=== PATIENT | male | born 1950 | race Caucasian/White ===

== ENCOUNTER 2017-04-23 18:57 | Emergency (ER) | payer MEDICARE, OTHER ==
[~2017-04-23] VITALS: Ht 167.6 cm; Wt 73.0 kg
[~2017-04-23 18:57] MED LIST: ASPI-247; CARV3.1240; HYDR-2601; IBUP800T24; PLAVIX; SIMV-13; TRAM100T19
[2017-04-23 19:05] VITALS: BP 148/77
[2017-04-23 19:48] LABS: Basophils # (auto) 0 uL; Basophils % (auto) 0.6 % (0.0-2.0); Eosinophils # (auto) 0.4 uL; Hematocrit 41.1 % (41.0-53.0); Hemoglobin 13.6 g/dL (13.5-17.5); Lymphocytes # (auto) 1.9 uL; Lymphocytes % (auto) 24.2 % (10.0-50.0); Mean Corpuscular Hgb Conc. 33.2 g/dL (32.0-36.0); Mean Corpuscular Volume 90.5 fL (80.0-100.0); Monocytes # (auto) 0.5 uL; Neutrophils % (auto) 64.2 % (37.0-80.0); Nucleated Red Blood Cells % 0.1 %; Platelet Count (auto) 325 10^3/uL (140-450); Red Blood Cells 4.54 10^6/uL (4.5-5.90); Red Cell Distribution Width 14.3 % (11.8-14.3); White Blood Cell 7.8 10^3/uL (4.4-10.8)
[2017-04-23 20:14] LABS: Albumin 4.4 g/dL (3.4-5.0); BUN/Creatinine Ratio 15.3; Bilirubin, Total 0.3 mg/dL (0.2-1.0); Potassium 4.1 mmol/L (3.5-5.1); Total Protein 7.7 g/dL (6.4-8.2)
[2017-04-23 20:26] LABS: INR 1.1 (0.9-1.15); Partial Thromboplastin Time 22.9 sec (22.64-33.71)
[2017-04-23 20:29] LABS: Magnesium 2.1 mg/dL (1.6-2.6)
== END 2017-04-23 21:05 | disposition left against medical advice (07) ==
LOC: EDBD 18:57 → ER 18:57
DX: R10.13 Epigastric pain (principal); R07.89 Other chest pain; Z53.21 Procedure and treatment not carried out due to patient leaving prior to being seen by health care provider
CPT/HCPCS: 36415; 80053; 82150; 83735; 83880; 84443; 84484; 85025; 85610; 85730; 93005

== ENCOUNTER 2022-10-18 06:21 | Inpatient (IN) | payer MEDICARE, OTHER ==
[2022-10-14 10:40] LABS: Basophils # (auto) 0.1 10 ^3/uL (0-0.2); Basophils % (auto) 0.8 % (0.0-2.0); Eosinophils # (auto) 0.2 10 ^3/uL (0-0.8); Eosinophils % (auto) 3.2 % (0.0-7.0); Hematocrit 38.6 % (41.0-53.0); Hemoglobin 12.8 g/dL (13.5-17.5); Lymphocytes # (auto) 1.5 10 ^3/uL (0.4-5.4); Lymphocytes % (auto) 20.2 % (10.0-50.0); Mean Corpuscular Hemoglobin 29.7 pg (28.0-32.0); Mean Corpuscular Hgb Conc. 33.2 g/dL (32.0-36.0); Mean Corpuscular Volume 89.6 fL (80.0-100.0); Monocytes # (auto) 0.5 10 ^3/uL (0-1.3); Neutrophils # (auto) 5.3 10 ^3/uL (1.6-8.6); Neutrophils % (auto) 69.8 % (37.0-80.0); Nucleated Red Blood Cells % 0.1 %; Red Blood Cells 4.31 10^6/uL (4.5-5.90); Red Cell Distribution Width 14.1 % (11.8-14.3); White Blood Cell 7.6 10^3/uL (4.4-10.8)
[2022-10-14 10:58] LABS: Potassium 4.3 mmol/L (3.5-5.1)
[2022-10-14 11:04] LABS: Albumin 4.4 g/dL (3.4-5.0); BUN/Creatinine Ratio 17.5 (10.0-20.0); Bilirubin, Total 0.3 mg/dL (0.2-1.0); Calcium 9.3 mg/dL (8.5-10.1); Total Protein 7.4 g/dL (6.4-8.2); Urine Bacteria NONE SEEN /hpf (None Seen); Urine Blood Negative /uL (Negative); Urine Clarity Clear (Clear); Urine Color Yellow (Yellow); Urine Hyaline Cast FEW /lpf (0 - 2); Urine Mucus FEW (None Seen); Urine Protein, UAD Negative (Negative); Urine Specific Gravity 1.032 (1.001-1.035); Urine Urobilinogen Normal (Negative); Urine WBC 2 /hpf (0 - 3); Urine pH 5.5 (5.0-8.0)
[2022-10-14 11:27] LABS: INR 1.09 (0.9-1.15); Partial Thromboplastin Time 26.2 SEC (24.5-34.5); Prothrombin Time 11.4 sec (9.3-11.8)
[~2022-10-18] VITALS: Ht 167.6 cm; Wt 68.5 kg
[2022-10-18] VITALS (10 sets, daily range): BP systolic 86–144; BP diastolic 51–73; PULSE 59–98; RESP 11–27; TEMP 97–97.8; O2SAT 96–100
[~2022-10-18 06:21] MED LIST changes: +ALBUAER3 IN; +ATOR20TA50 PO; +BECLPOW12 XX; -CARV3.1240; +CITA20TA9 PO; +FAMO-68 PO; +FENO5TAB PO; -HYDR-2601; +IBUP-1456; -IBUP800T24; +LISI20TA56 PO; +METF-370 PO; -SIMV-13; -TRAM100T19
[2022-10-18] MEDS ORDERED: HYDROmorphone HCL 2 MG/ML VL/or syr ONE (07:20)
[2022-10-18] MEDS ORDERED: DexAMETHasone SOD PHOS 10MG/1ML VIAL INJ ONE (07:21)
[2022-10-18] MEDS ORDERED: fentaNYL CITRATE 100 MCG/2 ML VL ONE (07:21)
[2022-10-18] MEDS ORDERED: MIDAZOLAM HCL 2MG/2ML 2ml VIAL (1mg/ml) ONE (07:21)
[2022-10-18] MEDS ORDERED: PROPOFOL 10 MG/ML 20 ML IV ONE (07:21)
[2022-10-18] MEDS ORDERED: ceFAZolin 1GM/50ML 100 ML IV ONE (07:26)
[2022-10-18] MEDS ORDERED: PHENYLEPHRINE HCL 10 MG/ML VL IV ONE (07:30)
[2022-10-18] MEDS ORDERED: ePHEDrine SULFATE 50 MG/ML AMP IV PRN (08:45)
[2022-10-18] MEDS ORDERED: MORPHINE SULFATE 4 MG/ML SYR/VIAL IV PRN (08:45)
[2022-10-18] MEDS ORDERED: MIDAZOLAM HCL 2MG/2ML 2ml VIAL (1mg/ml) IV PRN (08:45)
[2022-10-18] MEDS ORDERED: LABETALOL HCL 5 MG/ML 4ML SYRINGE IV PRN (08:45)
[2022-10-18] MEDS ORDERED: ONDANSETRON HCL 4 MG/2 ML VIAL IV PRN (08:45)
[2022-10-18] MEDS ORDERED: HYDROmorphone HCL 2 MG/ML VL/or syr IV PRN (08:45)
[2022-10-18 12:46] LABS: Base Excess -6.7 mmol/L (-2.0-2.0)
[2022-10-18] MEDS ORDERED: ACETAMINOPHEN 325 MG TAB PO PRN (13:00)
[2022-10-18] MEDS ORDERED: NITROGLYCERIN 0.4 MG SL TAB SL PRN (13:00)
[2022-10-18] MEDS ORDERED: ALBUTEROL SULF HFA 90MCG INH 200DOSE IN SCH (13:15)
[2022-10-18] MEDS ORDERED: ALBUTEROL SULF 2.5 MG/0.5ML(0.5%) NEB SOLN NEB PRN (13:45)
[2022-10-18] MEDS: CYCLOBENZAPRINE HCL 10 MG TAB PO SCH ×2 (14:00→22:00)
[2022-10-18 15:25] LABS: Basophils # (auto) 0 10 ^3/uL (0-0.2); Basophils % (auto) 0.2 % (0.0-2.0); Eosinophils # (auto) 0 10 ^3/uL (0-0.8); Eosinophils % (auto) 0.2 % (0.0-7.0); Mean Corpuscular Volume 90.9 fL (80.0-100.0); Red Cell Distribution Width 13.9 % (11.8-14.3)
[2022-10-18 15:27] LABS: Hematocrit 22.3 % (41.0-53.0); Hemoglobin 7.2 g/dL (13.5-17.5); Lymphocytes % (auto) 5.6 % (10.0-50.0); Mean Corpuscular Hemoglobin 29.5 pg (28.0-32.0); Mean Corpuscular Hgb Conc. 32.5 g/dL (32.0-36.0); Monocytes # (auto) 0.5 10 ^3/uL (0-1.3); Monocytes % (auto) 3.1 % (0.0-12.0); Neutrophils # (auto) 15.9 10 ^3/uL (1.6-8.6); Neutrophils % (auto) 90.9 % (37.0-80.0); Red Blood Cells 2.45 10^6/uL (4.5-5.90); White Blood Cell 17.4 10^3/uL (4.4-10.8)
[2022-10-18 15:39] LABS: Base Excess -6.6 mmol/L (-2.0-2.0)
[2022-10-18 15:43] LABS: Albumin 2.5 g/dL (3.4-5.0); Calcium 7.4 mg/dL (8.5-10.1); Potassium 4.8 mmol/L (3.5-5.1)
[2022-10-18] MEDS: ceFAZolin 1GM/50ML 50 ML IV SCH ×2 (15:44→22:46)
[2022-10-18 15:46] LABS: BUN/Creatinine Ratio 21.4 (10.0-20.0); Bilirubin, Total 0.2 mg/dL (0.2-1.0); Total Protein 4.3 g/dL (6.4-8.2)
[2022-10-18] MEDS ORDERED: ALBUMIN 25% 100 ML IV ONE (16:00)
[2022-10-18] MEDS: D5W/SOD CHLO 0.9% 1,000 ML IV SCH (16:33)
[2022-10-18 18:53] LABS: Basophils # (auto) 0 10 ^3/uL (0-0.2); Basophils % (auto) 0.1 % (0.0-2.0); Eosinophils # (auto) 0 10 ^3/uL (0-0.8); Eosinophils % (auto) 0.1 % (0.0-7.0); Hematocrit 23.7 % (41.0-53.0); Hemoglobin 7.5 g/dL (13.5-17.5); Lymphocytes # (auto) 0.5 10 ^3/uL (0.4-5.4); Lymphocytes % (auto) 2.7 % (10.0-50.0); Mean Corpuscular Hemoglobin 29.6 pg (28.0-32.0); Mean Corpuscular Hgb Conc. 31.8 g/dL (32.0-36.0); Mean Corpuscular Volume 93.1 fL (80.0-100.0); Monocytes % (auto) 5.3 % (0.0-12.0); Neutrophils # (auto) 17.5 10 ^3/uL (1.6-8.6); Neutrophils % (auto) 91.8 % (37.0-80.0); Red Blood Cells 2.55 10^6/uL (4.5-5.90); Red Cell Distribution Width 14.3 % (11.8-14.3); White Blood Cell 19.1 10^3/uL (4.4-10.8)
[2022-10-18] MEDS: ONDANSETRON HCL 4 MG/2 ML VIAL IV PRN ×2 (19:24→23:35)
[2022-10-18] MEDS: PANTOPRAZOLE 40 MG/10 ML VIAL INJ IV SCH (20:01)
[2022-10-18] MEDS ORDERED: FAMOTIDINE 20 MG TAB PO SCH (22:00)
[2022-10-18] MEDS: CITALOPRAM HYDROBR 20 MG TAB PO SCH (22:00)
[2022-10-18] MEDS: DOCUSATE SOD 100 MG CAP PO SCH (22:00)
[2022-10-18] MEDS: MORPHINE SULFATE INJ 2 MG/ml SYRG IV PRN (23:40)
[2022-10-19] VITALS (23 sets, daily range): BP systolic 75–155; BP diastolic 43–82; PULSE 60–97; RESP 13–33; TEMP 97–98.8; O2SAT 76–100
[2022-10-19] MEDS: CITALOPRAM HYDROBR 20 MG TAB PO SCH ×2 (00:47→21:24)
[2022-10-19] MEDS: D5W/SOD CHLO 0.9% 1,000 ML IV SCH ×2 (04:02→09:00)
[2022-10-19] MEDS: ONDANSETRON HCL 4 MG/2 ML VIAL IV PRN ×2 (04:08→08:29)
[2022-10-19] MEDS: MORPHINE SULFATE INJ 2 MG/ml SYRG IV PRN ×2 (04:08→08:29)
[2022-10-19 05:01] LABS: Basophils # (auto) 0 10 ^3/uL (0-0.2); Basophils % (auto) 0.3 % (0.0-2.0); Eosinophils # (auto) 0 10 ^3/uL (0-0.8); Hematocrit 23.1 % (41.0-53.0); Hemoglobin 7.7 g/dL (13.5-17.5); Lymphocytes # (auto) 0.9 10 ^3/uL (0.4-5.4); Lymphocytes % (auto) 5.3 % (10.0-50.0); Mean Corpuscular Hemoglobin 30.2 pg (28.0-32.0); Mean Corpuscular Hgb Conc. 33.2 g/dL (32.0-36.0); Mean Corpuscular Volume 90.9 fL (80.0-100.0); Monocytes # (auto) 1.2 10 ^3/uL (0-1.3); Monocytes % (auto) 7.3 % (0.0-12.0); Neutrophils # (auto) 14.5 10 ^3/uL (1.6-8.6); Neutrophils % (auto) 87.1 % (37.0-80.0); Red Blood Cells 2.54 10^6/uL (4.5-5.90); Red Cell Distribution Width 13.9 % (11.8-14.3); White Blood Cell 16.7 10^3/uL (4.4-10.8)
[2022-10-19 05:21] LABS: Albumin 3.3 g/dL (3.4-5.0); Calcium 7.8 mg/dL (8.5-10.1); Magnesium 1.8 mg/dL (1.6-2.6); Potassium 4.1 mmol/L (3.5-5.1)
[2022-10-19 05:26] LABS: BUN/Creatinine Ratio 19.5 (10.0-20.0); Bilirubin, Total 0.4 mg/dL (0.2-1.0); Total Protein 5.3 g/dL (6.4-8.2)
[2022-10-19] MEDS: CYCLOBENZAPRINE HCL 10 MG TAB PO SCH ×3 (06:34→21:24)
[2022-10-19] MEDS: LISINOPRIL 20 MG TAB PO SCH (09:47)
[2022-10-19] MEDS: PANTOPRAZOLE 40 MG/10 ML VIAL INJ IV SCH (09:47)
[2022-10-19] MEDS: DOCUSATE SOD 100 MG CAP PO SCH ×2 (09:47→21:24)
[2022-10-19] MEDS ORDERED: DEXTROSE (50%) 50ML SYRG IV PRN (12:15)
[2022-10-19] MEDS: HYDROcodone-ACET 10/325MG TAB PO PRN ×2 (15:15→21:24)
[2022-10-19] MEDS: ACCU-CHEK COMFORT CURVE STRIP VI SCH ×2 (17:31→21:42)
[2022-10-19] MEDS: InsuLIN REG 1unit/0.01ml Soln (100units/ml) SC SCH ×2 (17:50→21:42)
[2022-10-20] VITALS (44 sets, daily range): BP systolic 80–139; BP diastolic 47–81; PULSE 82–193; RESP 15–42; TEMP 97.9–101.2; O2SAT 59–100
[2022-10-20] MEDS: HYDROcodone-ACET 10/325MG TAB PO PRN ×2 (04:37→12:55)
[2022-10-20 05:02] LABS: Basophils # (auto) 0 10 ^3/uL (0-0.2); Basophils % (auto) 0.1 % (0.0-2.0); Eosinophils # (auto) 0 10 ^3/uL (0-0.8); Lymphocytes # (auto) 0.8 10 ^3/uL (0.4-5.4); Neutrophils # (auto) 17.2 10 ^3/uL (1.6-8.6)
[2022-10-20 05:05] LABS: Hematocrit 21.4 % (41.0-53.0); Hemoglobin 7.2 g/dL (13.5-17.5); Lymphocytes % (auto) 4.3 % (10.0-50.0); Mean Corpuscular Hemoglobin 30.2 pg (28.0-32.0); Mean Corpuscular Hgb Conc. 33.8 g/dL (32.0-36.0); Mean Corpuscular Volume 89.2 fL (80.0-100.0); Monocytes # (auto) 1.1 10 ^3/uL (0-1.3); Monocytes % (auto) 5.6 % (0.0-12.0); Red Blood Cells 2.39 10^6/uL (4.5-5.90); Red Cell Distribution Width 13.7 % (11.8-14.3); White Blood Cell 19.1 10^3/uL (4.4-10.8)
[2022-10-20 05:19] LABS: Potassium 4.2 mmol/L (3.5-5.1)
[2022-10-20 05:24] LABS: BUN/Creatinine Ratio 24.3 (10.0-20.0); Magnesium 2.3 mg/dL (1.6-2.6)
[2022-10-20] MEDS: CYCLOBENZAPRINE HCL 10 MG TAB PO SCH (05:41)
[2022-10-20] MEDS: ACCU-CHEK COMFORT CURVE STRIP VI SCH ×4 (06:08→22:29)
[2022-10-20] MEDS: InsuLIN REG 1unit/0.01ml Soln (100units/ml) SC SCH ×4 (06:11→22:00)
[2022-10-20] MEDS: LISINOPRIL 20 MG TAB PO SCH (10:00)
[2022-10-20] MEDS: DOCUSATE SOD 100 MG CAP PO SCH ×2 (10:02→22:00)
[2022-10-20] MEDS: PANTOPRAZOLE 40 MG/10 ML VIAL INJ IV SCH (10:03)
[2022-10-20 11:53] LABS: Hematocrit 21.7 % (41.0-53.0); Hemoglobin 7.1 g/dL (13.5-17.5)
[2022-10-20] MEDS ORDERED: ALBUTEROL SULF 2.5 MG/0.5ML(0.5%) NEB SOLN NEB ONE (17:15)
[2022-10-20] MEDS: ACETAMINOPHEN 325 MG TAB PO PRN (17:46)
[2022-10-20] MEDS ORDERED: SUCCINYLCHOLINE CHLORIDE 20 MG/ML 10ML VIAL IV ONE ×2 (17:56→18:30)
[2022-10-20] MEDS ORDERED: ETOMIDATE (2MG/ML) 20ML VIAL IV ONE ×2 (17:56→18:30)
[2022-10-20] MEDS ORDERED: fentaNYL Drip 2500mCg/250mlNS 250 ML IV ONE (17:57)
[2022-10-20] MEDS ORDERED: MIDAZOLAM DRIP 50 mg/50mL 50 ML IV ONE (17:58)
[2022-10-20] MEDS ORDERED: MIDAZOLAM DRIP 50 mg/50mL 50 ML IV SCH (18:30)
[2022-10-20] MEDS ORDERED: AMIODARONE 450mg/250ml AE 250 ML IV SCH (18:30)
[2022-10-20 18:34] LABS: Basophils # (auto) 0 10 ^3/uL (0-0.2); Basophils % (auto) 0.1 % (0.0-2.0); Eosinophils # (auto) 0 10 ^3/uL (0-0.8); Hematocrit 24.6 % (41.0-53.0); Hemoglobin 8.1 g/dL (13.5-17.5); Lymphocytes # (auto) 3.7 10 ^3/uL (0.4-5.4); Lymphocytes % (auto) 16.4 % (10.0-50.0); Mean Corpuscular Hemoglobin 29.9 pg (28.0-32.0); Mean Corpuscular Volume 90.6 fL (80.0-100.0); Monocytes # (auto) 1.4 10 ^3/uL (0-1.3); Monocytes % (auto) 6.3 % (0.0-12.0); Neutrophils # (auto) 17.5 10 ^3/uL (1.6-8.6); Neutrophils % (auto) 77.2 % (37.0-80.0); Nucleated Red Blood Cells % 0.1 %; Red Blood Cells 2.71 10^6/uL (4.5-5.90); Red Cell Distribution Width 13.8 % (11.8-14.3); White Blood Cell 22.7 10^3/uL (4.4-10.8)
[2022-10-20] MEDS ORDERED: PROPOFOL 100 ML IV ONE (18:37)
[2022-10-20] MEDS ORDERED: AMIODARONE BOLUS KIT 100 ML IV ONE (18:45)
[2022-10-20] MEDS ORDERED: cefTRIAXone 1GM/50ML D5W 50 ML IV ONE (18:45)
[2022-10-20 19:24] LABS: Urine Bacteria NONE SEEN /hpf (None Seen); Urine Blood 2+ /uL (Negative); Urine Clarity HAZY (Clear); Urine Color Yellow (Yellow); Urine Hyaline Cast FEW /lpf (0 - 2); Urine Mucus FEW (None Seen); Urine Protein, UAD 3+ (Negative); Urine Specific Gravity 1.021 (1.001-1.035); Urine Urobilinogen Normal (Negative); Urine WBC 9 /hpf (0 - 3)
[2022-10-20] MEDS: NOREPINEPHRINE 8 MG/250ML KIT 250 ML IV SCH (19:27)
[2022-10-20 19:32] LABS: Lactic Acid w/Reflex 4.6 mmol/L (0.4-2.0)
[2022-10-20] MEDS: fentaNYL Drip 2500mCg/250mlNS 250 ML IV SCH (20:03)
[2022-10-20] MEDS: MIDAZOLAM DRIP 50 mg/50mL 50 ML IV SCH (20:04)
[2022-10-20 20:32] LABS: Albumin 3.1 g/dL (3.4-5.0); Calcium 8.2 mg/dL (8.5-10.1); Potassium 4.1 mmol/L (3.5-5.1)
[2022-10-20 20:36] LABS: BUN/Creatinine Ratio 19.6 (10.0-20.0); Bilirubin, Total 0.4 mg/dL (0.2-1.0); Total Protein 5.4 g/dL (6.4-8.2)
[2022-10-20] MEDS ORDERED: AMIODARONE HCL (50 MG/ ML) 3 ML VIAL IV ONE (20:44)
[2022-10-20 21:05] LABS: Base Excess -5.6 mmol/L (-2.0-2.0)
[2022-10-20 21:06] LABS: Base Excess -2.2 mmol/L (-2.0-2.0)
[2022-10-20] MEDS ORDERED: MEROPENEM 500MG IVPB 50 ML IV SCH (22:00)
[2022-10-20] MEDS ORDERED: VANCOMYCIN 1GM/250ML 250 ML IV SCH (22:00)
[2022-10-20] MEDS: MEROPENEM 1GM IVPB 100 ML IV SCH (22:28)
[2022-10-20] MEDS: CITALOPRAM HYDROBR 20 MG TAB PO SCH (22:28)
[2022-10-20] MEDS ORDERED: ACETAMINOPHEN 500 MG TAB PO ONE (23:00)
[2022-10-20] MEDS ORDERED: diphenhdrAMINE HCL 50 MG/1 ML VL IV ONE (23:00)
[2022-10-21] VITALS (103 sets, daily range): BP systolic 68–127; BP diastolic 41–77; PULSE 72–152; RESP 16–19; TEMP 97.8–99.7; O2SAT 88–100
[2022-10-21] MEDS: AMIODARONE 450mg/250ml AE 250 ML IV SCH ×3 (00:20→23:19)
[2022-10-21] MEDS: PROPOFOL 100 ML IV SCH ×3 (02:28→20:00)
[2022-10-21] MEDS: MIDAZOLAM DRIP 50 mg/50mL 50 ML IV SCH ×3 (03:16→17:39)
[2022-10-21 05:15] LABS: Basophils # (auto) 0 10 ^3/uL (0-0.2); Basophils % (auto) 0.2 % (0.0-2.0); Eosinophils # (auto) 0 10 ^3/uL (0-0.8); Eosinophils % (auto) 0.1 % (0.0-7.0); Hematocrit 27.5 % (41.0-53.0); Hemoglobin 8.6 g/dL (13.5-17.5); Lymphocytes # (auto) 1.8 10 ^3/uL (0.4-5.4); Lymphocytes % (auto) 9.1 % (10.0-50.0); Mean Corpuscular Hemoglobin 30.2 pg (28.0-32.0); Mean Corpuscular Hgb Conc. 31.3 g/dL (32.0-36.0); Mean Corpuscular Volume 96.5 fL (80.0-100.0); Monocytes # (auto) 2.2 10 ^3/uL (0-1.3); Monocytes % (auto) 11.4 % (0.0-12.0); Neutrophils # (auto) 15.5 10 ^3/uL (1.6-8.6); Neutrophils % (auto) 79.2 % (37.0-80.0); Nucleated Red Blood Cells % 0.2 %; Red Blood Cells 2.85 10^6/uL (4.5-5.90); Red Cell Distribution Width 15.4 % (11.8-14.3); White Blood Cell 19.6 10^3/uL (4.4-10.8)
[2022-10-21 05:30] LABS: INR 1.15 (0.9-1.15); Partial Thromboplastin Time 27.1 SEC (24.5-34.5)
[2022-10-21] MEDS: MEROPENEM 1GM IVPB 100 ML IV SCH ×3 (05:57→23:19)
[2022-10-21 06:06] LABS: Base Excess -3.9 mmol/L (-2.0-2.0)
[2022-10-21] MEDS: ACCU-CHEK COMFORT CURVE STRIP VI SCH ×4 (06:08→23:16)
[2022-10-21] MEDS: InsuLIN REG 1unit/0.01ml Soln (100units/ml) SC SCH ×4 (06:08→22:00)
[2022-10-21 06:52] LABS: Albumin 2.9 g/dL (3.4-5.0); Anion Gap 10 (5-15); Blood Urea Nitrogen 21 mg/dL (7-18); Carbon Dioxide 20 mmol/L (21-32); Chloride 113 mmol/L (98-107); Glucose 132 mg/dL (74-106); Potassium 4.2 mmol/L (3.5-5.1); Sodium 143 mmol/L (136-145)
[2022-10-21 06:54] LABS: BUN/Creatinine Ratio 20.8 (10.0-20.0); Calcium 8.2 mg/dL (8.5-10.1); GFR African American 94 mL/min; GFR Non-African American 77 mL/min
[2022-10-21 07:11] LABS: Alanine Aminotransferase 359 U/L (16-61); Alkaline Phosphatase 26 U/L (45-117); Aspartate Aminotransferase 548 U/L (15-37); Bilirubin, Total 0.4 mg/dL (0.2-1.0); Total Protein 6.2 g/dL (6.4-8.2)
[2022-10-21] MEDS: DIGOXIN (250MCG/ML) 2 ML AMPULE IV ONE ×2 (08:15→08:39)
[2022-10-21] MEDS ORDERED: VANCOMYCIN 1GM/250ML 250 ML IV ONE (08:15)
[2022-10-21] MEDS ORDERED: FUROSEMIDE 20 MG/2 ML VIAL IV ONE (08:15)
[2022-10-21] MEDS ORDERED: cefTRIAXone 1GM/50ML D5W 50 ML IV SCH (09:00)
[2022-10-21 09:10] LABS: Cholesterol 105 mg/dL (< 200); HDL Cholesterol 31 mg/dL (40-59); LDL Cholesterol 56 mg/dL (< 100); Triglycerides 156 mg/dL (< 150)
[2022-10-21] MEDS: DOCUSATE SOD 100 MG CAP PO SCH ×2 (10:00→22:00)
[2022-10-21] MEDS: PANTOPRAZOLE 40 MG/10 ML VIAL INJ IV SCH (10:00)
[2022-10-21] MEDS ORDERED: VANCOMYCIN PER PHARMACY 0 MG IV SCH (10:15)
[2022-10-21] MEDS ORDERED: LIDOCAINE 1% (LOCAL ANESTH.) PF 5ml SDV ID ONE (10:45)
[2022-10-21] MEDS ORDERED: DIGOXIN (250MCG/ML) 2 ML AMPULE IV ONE ×2 (11:15→14:15)
[2022-10-21] MEDS ORDERED: IOHEXOL 350 MG/ML 100ML IJ ONE (11:23)
[2022-10-21] MEDS: fentaNYL Drip 2500mCg/250mlNS 250 ML IV SCH (11:48)
[2022-10-21] MEDS ORDERED: HEPARIN SODIUM (PORCINE) 5000 UNITS/ML 1ML VIAL ONE (14:58)
[2022-10-21] MEDS ORDERED: VERAPAMIL 2.5MG/ML INJ 2ML VIAL IV ONE (14:58)
[2022-10-21] MEDS ORDERED: fentaNYL CITRATE 100 MCG/2 ML VL ONE (14:58)
[2022-10-21] MEDS ORDERED: MIDAZOLAM HCL 2MG/2ML 2ml VIAL (1mg/ml) ONE (14:58)
[2022-10-21] MEDS ORDERED: ANGIOMAX 250 MG VIAL IV ONE (14:58)
[2022-10-21] MEDS ORDERED: LIDOCAINE 2%HCL (LOCAL ANESTH.) INJ 20ML MDV ONE (14:59)
[2022-10-21] MEDS ORDERED: SODIUM CHL 0.9% 0 ML ONE (14:59)
[2022-10-21] MEDS ORDERED: IODIXANOL 320MG/ML 100ML BTL IV ONE (14:59)
[2022-10-21] MEDS: ASPirin 81 mg TAB PO SCH (16:15)
[2022-10-21] MEDS ORDERED: FUROSEMIDE 20 MG/2 ML VIAL IV SCH (18:00)
[2022-10-21] MEDS: NOREPINEPHRINE 8 MG/250ML KIT 250 ML IV SCH (18:45)
[2022-10-21] MEDS ORDERED: ATORVASTATIN 20 MG TAB PO SCH (22:00)
[2022-10-21] MEDS: CITALOPRAM HYDROBR 20 MG TAB PO SCH (23:19)
[2022-10-21] MEDS: VANCOMYCIN 1GM/250ML 250 ML IV SCH (23:19)
[2022-10-21] MEDS: SODIUM CHLOR 0.9% PF (SALINE LOCK) 10ML VIAL/SYR IV SCH (23:22)
[2022-10-22] VITALS (100 sets, daily range): BP systolic 90–120; BP diastolic 47–80; PULSE 71–136; RESP 15–30; TEMP 97.9–101.3; O2SAT 85–100
[2022-10-22] MEDS: MIDAZOLAM DRIP 50 mg/50mL 50 ML IV SCH ×2 (00:50→10:52)
[2022-10-22] MEDS: ACETAMINOPHEN 325 MG TAB PO PRN (03:01)
[2022-10-22] MEDS: PROPOFOL 100 ML IV SCH ×3 (03:40→19:50)
[2022-10-22 04:53] LABS: Calcium 6.3 mg/dL (8.5-10.1); Potassium 3.3 mmol/L (3.5-5.1)
[2022-10-22 04:56] LABS: Bilirubin, Total 0.3 mg/dL (0.2-1.0); Total Protein 4.4 g/dL (6.4-8.2)
[2022-10-22] MEDS: MEROPENEM 1GM IVPB 100 ML IV SCH ×3 (06:03→22:56)
[2022-10-22] MEDS: NOREPINEPHRINE 8 MG/250ML KIT 250 ML IV SCH ×2 (06:24→10:53)
[2022-10-22] MEDS: ACCU-CHEK COMFORT CURVE STRIP VI SCH ×4 (06:26→22:59)
[2022-10-22] MEDS: InsuLIN REG 1unit/0.01ml Soln (100units/ml) SC SCH ×4 (06:26→22:00)
[2022-10-22] MEDS: ALBUTEROL SULF 2.5 MG/0.5ML(0.5%) NEB SOLN NEB SCH (06:47)
[2022-10-22 08:09] LABS: Base Excess -2.4 mmol/L (-2.0-2.0)
[2022-10-22 08:47] LABS: Basophils # (auto) 0.1 10 ^3/uL (0-0.2); Hemoglobin 7.1 g/dL (13.5-17.5); Nucleated Red Blood Cells % 0.3 %; Red Cell Distribution Width 14.1 % (11.8-14.3)
[2022-10-22 08:49] LABS: Basophils % (auto) 0.6 % (0.0-2.0); Eosinophils # (auto) 0 10 ^3/uL (0-0.8); Eosinophils % (auto) 0.2 % (0.0-7.0); Hematocrit 20.8 % (41.0-53.0); Mean Corpuscular Hemoglobin 31.1 pg (28.0-32.0); Mean Corpuscular Hgb Conc. 34.4 g/dL (32.0-36.0); Mean Corpuscular Volume 90.5 fL (80.0-100.0); Monocytes % (auto) 7.8 % (0.0-12.0); Neutrophils # (auto) 10.4 10 ^3/uL (1.6-8.6); Neutrophils % (auto) 83.4 % (37.0-80.0); Red Blood Cells 2.29 10^6/uL (4.5-5.90); White Blood Cell 12.4 10^3/uL (4.4-10.8)
[2022-10-22] MEDS: DOCUSATE SOD 100 MG CAP PO SCH ×2 (10:00→22:00)
[2022-10-22] MEDS ORDERED: DIGOXIN (250MCG/ML) 2 ML AMPULE IV ONE (10:15)
[2022-10-22] MEDS ORDERED: FUROSEMIDE 40 MG/4 ML VIAL IV ONE (10:15)
[2022-10-22] MEDS: PANTOPRAZOLE 40 MG/10 ML VIAL INJ IV SCH (10:52)
[2022-10-22] MEDS: ASPirin 81 mg TAB PO SCH (10:54)
[2022-10-22] MEDS: SODIUM CHLOR 0.9% PF (SALINE LOCK) 10ML VIAL/SYR IV SCH ×2 (10:55→22:56)
[2022-10-22] MEDS: POTASSIUM CHL 20MEQ/100ML 100 ML IV SCH ×2 (11:13→13:29)
[2022-10-22] MEDS: VANCOMYCIN 1GM/250ML 250 ML IV SCH (14:12)
[2022-10-22 14:56] LABS: Base Excess -4.3 mmol/L (-2.0-2.0)
[2022-10-22 15:10] LABS: Basophils # (auto) 0.1 10 ^3/uL (0-0.2); Hemoglobin 7.7 g/dL (13.5-17.5); Mean Corpuscular Hemoglobin 30.5 pg (28.0-32.0); Mean Corpuscular Hgb Conc. 33.9 g/dL (32.0-36.0); Monocytes % (auto) 7.1 % (0.0-12.0); Nucleated Red Blood Cells % 0.2 %; Red Cell Distribution Width 13.9 % (11.8-14.3)
[2022-10-22 15:12] LABS: Basophils % (auto) 0.6 % (0.0-2.0); Eosinophils # (auto) 0.1 10 ^3/uL (0-0.8); Eosinophils % (auto) 0.4 % (0.0-7.0); Hematocrit 22.6 % (41.0-53.0); Lymphocytes # (auto) 0.9 10 ^3/uL (0.4-5.4); Lymphocytes % (auto) 6.2 % (10.0-50.0); Mean Corpuscular Volume 90.1 fL (80.0-100.0); Monocytes # (auto) 1.1 10 ^3/uL (0-1.3); Neutrophils # (auto) 12.6 10 ^3/uL (1.6-8.6); Neutrophils % (auto) 85.7 % (37.0-80.0); Red Blood Cells 2.51 10^6/uL (4.5-5.90); White Blood Cell 14.8 10^3/uL (4.4-10.8)
[2022-10-22 15:43] LABS: Albumin 2.4 g/dL (3.4-5.0); Calcium 7.3 mg/dL (8.5-10.1)
[2022-10-22 15:46] LABS: BUN/Creatinine Ratio 24.6 (10.0-20.0); Bilirubin, Total 0.5 mg/dL (0.2-1.0); Total Protein 5.7 g/dL (6.4-8.2)
[2022-10-22] MEDS: FUROSEMIDE 40 MG/4 ML VIAL IV SCH (17:33)
[2022-10-22] MEDS: fentaNYL Drip 2500mCg/250mlNS 250 ML IV SCH (19:50)
[2022-10-22] MEDS: CITALOPRAM HYDROBR 20 MG TAB PO SCH (22:56)
[2022-10-23] VITALS (103 sets, daily range): BP systolic 92–126; BP diastolic 42–67; PULSE 67–80; RESP 15–24; TEMP 99–100.6; O2SAT 92–100
[2022-10-23] MEDS: MIDAZOLAM DRIP 50 mg/50mL 50 ML IV SCH (01:50)
[2022-10-23 03:57] LABS: Basophils # (auto) 0 10 ^3/uL (0-0.2); Basophils % (auto) 0.2 % (0.0-2.0); Eosinophils # (auto) 0.1 10 ^3/uL (0-0.8); Lymphocytes # (auto) 0.8 10 ^3/uL (0.4-5.4); Lymphocytes % (auto) 6.6 % (10.0-50.0); Monocytes % (auto) 7.9 % (0.0-12.0); White Blood Cell 12.4 10^3/uL (4.4-10.8)
[2022-10-23 04:00] LABS: Eosinophils % (auto) 0.9 % (0.0-7.0); Hematocrit 20.5 % (41.0-53.0); Mean Corpuscular Hemoglobin 29.8 pg (28.0-32.0); Mean Corpuscular Hgb Conc. 33.7 g/dL (32.0-36.0); Mean Corpuscular Volume 88.4 fL (80.0-100.0); Neutrophils # (auto) 10.4 10 ^3/uL (1.6-8.6); Neutrophils % (auto) 84.4 % (37.0-80.0); Nucleated Red Blood Cells % 0.3 %; Red Blood Cells 2.32 10^6/uL (4.5-5.90); Red Cell Distribution Width 13.6 % (11.8-14.3)
[2022-10-23 04:17] LABS: Albumin 2.1 g/dL (3.4-5.0); BUN/Creatinine Ratio 31.8 (10.0-20.0); Calcium 7.6 mg/dL (8.5-10.1); Potassium 4.4 mmol/L (3.5-5.1)
[2022-10-23 04:19] LABS: Hemoglobin 6.9 g/dL (13.5-17.5)
[2022-10-23 04:20] LABS: Bilirubin, Total 0.4 mg/dL (0.2-1.0); Total Protein 5.3 g/dL (6.4-8.2)
[2022-10-23] MEDS: VANCOMYCIN 1GM/250ML 250 ML IV SCH ×2 (05:19→20:17)
[2022-10-23] MEDS: PROPOFOL 100 ML IV SCH (05:19)
[2022-10-23] MEDS: FUROSEMIDE 40 MG/4 ML VIAL IV SCH ×2 (06:11→17:41)
[2022-10-23] MEDS: MEROPENEM 1GM IVPB 100 ML IV SCH ×3 (06:11→22:16)
[2022-10-23] MEDS: ALBUTEROL SULF 2.5 MG/0.5ML(0.5%) NEB SOLN NEB SCH ×2 (06:13→10:00)
[2022-10-23] MEDS: InsuLIN REG 1unit/0.01ml Soln (100units/ml) SC SCH ×4 (06:45→22:31)
[2022-10-23] MEDS: ACCU-CHEK COMFORT CURVE STRIP VI SCH ×4 (06:45→22:21)
[2022-10-23] MEDS: NOREPINEPHRINE 8 MG/250ML KIT 250 ML IV SCH (08:07)
[2022-10-23 08:10] LABS: Basophils # (auto) 0.1 10 ^3/uL (0-0.2); Basophils % (auto) 0.5 % (0.0-2.0); Eosinophils # (auto) 0.2 10 ^3/uL (0-0.8); Eosinophils % (auto) 1.2 % (0.0-7.0); Hematocrit 21.9 % (41.0-53.0); Hemoglobin 7.2 g/dL (13.5-17.5); Lymphocytes # (auto) 0.8 10 ^3/uL (0.4-5.4); Lymphocytes % (auto) 6.6 % (10.0-50.0); Mean Corpuscular Hemoglobin 29.3 pg (28.0-32.0); Mean Corpuscular Volume 88.8 fL (80.0-100.0); Monocytes # (auto) 0.8 10 ^3/uL (0-1.3); Monocytes % (auto) 6.6 % (0.0-12.0); Neutrophils # (auto) 10.6 10 ^3/uL (1.6-8.6); Neutrophils % (auto) 85.1 % (37.0-80.0); Nucleated Red Blood Cells % 0.2 %; Red Blood Cells 2.47 10^6/uL (4.5-5.90); Red Cell Distribution Width 13.9 % (11.8-14.3); White Blood Cell 12.5 10^3/uL (4.4-10.8)
[2022-10-23] MEDS: DOCUSATE SOD 100 MG CAP PO SCH ×2 (10:00→22:00)
[2022-10-23] MEDS: ASPirin 81 mg TAB PO SCH (10:00)
[2022-10-23] MEDS: PANTOPRAZOLE 40 MG/10 ML VIAL INJ IV SCH (10:31)
[2022-10-23] MEDS: SODIUM CHLOR 0.9% PF (SALINE LOCK) 10ML VIAL/SYR IV SCH ×2 (10:32→22:16)
[2022-10-23] MEDS: fentaNYL Drip 2500mCg/250mlNS 250 ML IV SCH ×2 (16:44→18:55)
[2022-10-23] MEDS: CITALOPRAM HYDROBR 20 MG TAB PO SCH (22:17)
[2022-10-24] VITALS (115 sets, daily range): BP systolic 98–127; BP diastolic 49–67; PULSE 65–78; RESP 14–24; TEMP 98.6–100.2; O2SAT 91–100
[2022-10-24 04:22] LABS: Albumin 1.9 g/dL (3.4-5.0); Calcium 7.7 mg/dL (8.5-10.1); Potassium 4.2 mmol/L (3.5-5.1)
[2022-10-24 04:26] LABS: Bilirubin, Total 0.4 mg/dL (0.2-1.0); Total Protein 5.3 g/dL (6.4-8.2)
[2022-10-24] MEDS: FUROSEMIDE 40 MG/4 ML VIAL IV SCH ×2 (06:25→17:24)
[2022-10-24] MEDS: MEROPENEM 1GM IVPB 100 ML IV SCH ×3 (06:25→21:59)
[2022-10-24] MEDS: ACCU-CHEK COMFORT CURVE STRIP VI SCH ×4 (06:31→21:59)
[2022-10-24] MEDS: InsuLIN REG 1unit/0.01ml Soln (100units/ml) SC SCH ×4 (06:31→21:59)
[2022-10-24 07:51] LABS: Base Excess 4.3 mmol/L (-2.0-2.0)
[2022-10-24 08:03] LABS: Basophils # (auto) 0 10 ^3/uL (0-0.2); Basophils % (auto) 0.1 % (0.0-2.0); Eosinophils # (auto) 0.1 10 ^3/uL (0-0.8); Eosinophils % (auto) 0.5 % (0.0-7.0); Hematocrit 20.9 % (41.0-53.0); Lymphocytes # (auto) 0.6 10 ^3/uL (0.4-5.4); Lymphocytes % (auto) 4.7 % (10.0-50.0); Mean Corpuscular Hemoglobin 29.3 pg (28.0-32.0); Mean Corpuscular Hgb Conc. 33.1 g/dL (32.0-36.0); Mean Corpuscular Volume 88.7 fL (80.0-100.0); Monocytes # (auto) 0.9 10 ^3/uL (0-1.3); Monocytes % (auto) 7.1 % (0.0-12.0); Neutrophils # (auto) 10.8 10 ^3/uL (1.6-8.6); Neutrophils % (auto) 87.6 % (37.0-80.0); Nucleated Red Blood Cells % 0.3 %; Red Blood Cells 2.35 10^6/uL (4.5-5.90); Red Cell Distribution Width 13.7 % (11.8-14.3); White Blood Cell 12.3 10^3/uL (4.4-10.8)
[2022-10-24 08:06] LABS: Hemoglobin 6.9 g/dL (13.5-17.5)
[2022-10-24] MEDS: PANTOPRAZOLE 40 MG/10 ML VIAL INJ IV SCH (09:54)
[2022-10-24] MEDS: ASPirin 81 mg TAB PO SCH (09:55)
[2022-10-24] MEDS: DOCUSATE SOD 100 MG CAP PO SCH ×2 (09:55→21:59)
[2022-10-24] MEDS: SODIUM CHLOR 0.9% PF (SALINE LOCK) 10ML VIAL/SYR IV SCH ×2 (09:55→21:59)
[2022-10-24] MEDS ORDERED: ACETAMINOPHEN 650 mg PER 20.3 mL UD GT ONE (11:30)
[2022-10-24] MEDS ORDERED: diphenhdrAMINE HCL 50 MG/1 ML VL IV ONE (11:30)
[2022-10-24] MEDS: VANCOMYCIN 1GM/250ML 250 ML IV SCH (15:16)
[2022-10-24] MEDS: MIDAZOLAM DRIP 50 mg/50mL 50 ML IV SCH (20:01)
[2022-10-24] MEDS: fentaNYL Drip 2500mCg/250mlNS 250 ML IV SCH (20:01)
[2022-10-24] MEDS: NOREPINEPHRINE 8 MG/250ML KIT 250 ML IV SCH (20:01)
[2022-10-24] MEDS: PROPOFOL 100 ML IV SCH (21:17)
[2022-10-25] VITALS (115 sets, daily range): BP systolic 113–146; BP diastolic 51–93; PULSE 65–95; RESP 13–37; TEMP 98.8–99.9; O2SAT 94–100
[2022-10-25] MEDS: VANCOMYCIN 1GM/250ML 250 ML IV SCH ×2 (01:33→17:00)
[2022-10-25 04:47] LABS: Basophils # (auto) 0 10 ^3/uL (0-0.2); Basophils % (auto) 0.1 % (0.0-2.0); Eosinophils # (auto) 0 10 ^3/uL (0-0.8); Eosinophils % (auto) 0.1 % (0.0-7.0); Monocytes # (auto) 0.9 10 ^3/uL (0-1.3); Neutrophils % (auto) 89.3 % (37.0-80.0); Nucleated Red Blood Cells % 0.2 %
[2022-10-25 04:49] LABS: Hemoglobin 8.5 g/dL (13.5-17.5); Lymphocytes # (auto) 0.5 10 ^3/uL (0.4-5.4); Lymphocytes % (auto) 3.5 % (10.0-50.0); Mean Corpuscular Hemoglobin 30.4 pg (28.0-32.0); Mean Corpuscular Volume 89.3 fL (80.0-100.0); Neutrophils # (auto) 11.6 10 ^3/uL (1.6-8.6)
[2022-10-25 05:07] LABS: INR 1.12 (0.9-1.15); Partial Thromboplastin Time 30.7 SEC (24.5-34.5); Prothrombin Time 11.7 sec (9.3-11.8)
[2022-10-25 05:15] LABS: Calcium 7.9 mg/dL (8.7-10.4); Potassium 3.9 mmol/L (3.5-5.1)
[2022-10-25 05:17] LABS: Albumin 2.1 g/dL (3.4-5.0); BUN/Creatinine Ratio 54.4 (10.0-20.0); Magnesium 2.5 mg/dL (1.6-2.6)
[2022-10-25 05:20] LABS: Bilirubin, Total 0.7 mg/dL (0.2-1.0); Total Protein 5.1 g/dL (6.4-8.2)
[2022-10-25] MEDS: FUROSEMIDE 40 MG/4 ML VIAL IV SCH ×2 (05:41→17:45)
[2022-10-25] MEDS: MEROPENEM 1GM IVPB 100 ML IV SCH ×3 (05:41→21:34)
[2022-10-25] MEDS: ACCU-CHEK COMFORT CURVE STRIP VI SCH ×4 (06:32→21:36)
[2022-10-25] MEDS: InsuLIN REG 1unit/0.01ml Soln (100units/ml) SC SCH ×4 (06:32→21:41)
[2022-10-25 07:47] LABS: Base Excess 5.3 mmol/L (-2.0-2.0)
[2022-10-25] MEDS: ALBUTEROL SULF 2.5 MG/0.5ML(0.5%) NEB SOLN NEB SCH (09:37)
[2022-10-25] MEDS: DOCUSATE SOD 100 MG CAP PO SCH (10:00)
[2022-10-25] MEDS: SODIUM CHLOR 0.9% PF (SALINE LOCK) 10ML VIAL/SYR IV SCH ×2 (10:23→21:36)
[2022-10-25] MEDS: PANTOPRAZOLE 40 MG/10 ML VIAL INJ IV SCH (10:23)
[2022-10-25] MEDS ORDERED: MORPHINE SULFATE INJ 2 MG/ml SYRG IV PRN (11:00)
[2022-10-25] MEDS: ONDANSETRON HCL 4 MG/2 ML VIAL IV PRN ×3 (13:00→21:46)
[2022-10-25] MEDS: MORPHINE SULFATE INJ 2 MG/ml SYRG IV PRN ×3 (13:28→21:47)
[2022-10-25] MEDS: MIDAZOLAM DRIP 50 mg/50mL 50 ML IV SCH (18:30)
[2022-10-25] MEDS: fentaNYL Drip 2500mCg/250mlNS 250 ML IV SCH (18:30)
[2022-10-25] MEDS: NOREPINEPHRINE 8 MG/250ML KIT 250 ML IV SCH (18:45)
[2022-10-25] MEDS: HYDROcodone-ACET 10/325MG TAB PO PRN (20:13)
[2022-10-25] MEDS: DOCUSATE ORAL LIQUID 100 MG/10 ML UD GT SCH (21:36)
[2022-10-25] MEDS ORDERED: IOHEXOL 350 MG/ML 100ML IJ ONE (21:42)
[2022-10-25] MEDS: PROPOFOL 100 ML IV SCH (21:45)
[2022-10-26] VITALS (96 sets, daily range): BP systolic 114–138; BP diastolic 61–77; PULSE 74–99; RESP 10–33; TEMP 97–99.9; O2SAT 94–100
[2022-10-26] MEDS: ONDANSETRON HCL 4 MG/2 ML VIAL IV PRN ×4 (01:23→20:34)
[2022-10-26] MEDS: MORPHINE SULFATE INJ 2 MG/ml SYRG IV PRN ×5 (01:23→20:34)
[2022-10-26] MEDS: HYDROcodone-ACET 10/325MG TAB PO PRN ×3 (03:03→17:57)
[2022-10-26 04:21] LABS: Basophils # (auto) 0 10 ^3/uL (0-0.2); Basophils % (auto) 0.1 % (0.0-2.0); Eosinophils # (auto) 0.1 10 ^3/uL (0-0.8); Eosinophils % (auto) 0.4 % (0.0-7.0); Hematocrit 26.7 % (41.0-53.0); Hemoglobin 8.7 g/dL (13.5-17.5); Lymphocytes # (auto) 0.8 10 ^3/uL (0.4-5.4); Lymphocytes % (auto) 6.5 % (10.0-50.0); Mean Corpuscular Hemoglobin 29.1 pg (28.0-32.0); Mean Corpuscular Hgb Conc. 32.6 g/dL (32.0-36.0); Mean Corpuscular Volume 89.2 fL (80.0-100.0); Monocytes % (auto) 8.2 % (0.0-12.0); Neutrophils # (auto) 10.4 10 ^3/uL (1.6-8.6); Neutrophils % (auto) 84.8 % (37.0-80.0); Nucleated Red Blood Cells % 0.1 %; White Blood Cell 12.3 10^3/uL (4.4-10.8)
[2022-10-26 04:39] LABS: Chloride 106 mmol/L (98-107); Potassium 3.3 mmol/L (3.5-5.1); Sodium 145 mmol/L (136-145)
[2022-10-26 04:40] LABS: Anion Gap 9.3 (5-15); Calcium 8.8 mg/dL (8.7-10.4); Carbon Dioxide 29.7 mmol/L (20-30)
[2022-10-26 04:46] LABS: BUN/Creatinine Ratio 31.7 (10.0-20.0); Blood Urea Nitrogen 19 mg/dL (9-23); Glucose 136 mg/dL (74-106)
[2022-10-26] MEDS: MEROPENEM 1GM IVPB 100 ML IV SCH ×3 (05:44→21:36)
[2022-10-26] MEDS: FUROSEMIDE 40 MG/4 ML VIAL IV SCH ×2 (05:44→17:56)
[2022-10-26] MEDS: ACCU-CHEK COMFORT CURVE STRIP VI SCH ×4 (06:33→21:37)
[2022-10-26] MEDS: InsuLIN REG 1unit/0.01ml Soln (100units/ml) SC SCH ×4 (06:35→21:36)
[2022-10-26 07:45] LABS: Base Excess 7.9 mmol/L (-2.0-2.0)
[2022-10-26] MEDS: VANCOMYCIN 1GM/250ML 250 ML IV SCH ×2 (08:43→22:39)
[2022-10-26] MEDS: ALBUTEROL SULF 2.5 MG/0.5ML(0.5%) NEB SOLN NEB SCH (09:50)
[2022-10-26] MEDS: DOCUSATE ORAL LIQUID 100 MG/10 ML UD GT SCH ×2 (10:00→21:36)
[2022-10-26] MEDS: SODIUM CHLOR 0.9% PF (SALINE LOCK) 10ML VIAL/SYR IV SCH ×2 (10:18→21:37)
[2022-10-26] MEDS: PANTOPRAZOLE 40 MG/10 ML VIAL INJ IV SCH (10:18)
[2022-10-26] MEDS: POTASSIUM CHL 20MEQ/100ML 100 ML IV SCH ×2 (11:23→13:10)
[2022-10-26 11:32] LABS: Base Excess 5.7 mmol/L (-2.0-2.0)
[2022-10-26] MEDS: MIDAZOLAM DRIP 50 mg/50mL 50 ML IV SCH (18:08)
[2022-10-26] MEDS: fentaNYL Drip 2500mCg/250mlNS 250 ML IV SCH (18:08)
[2022-10-26] MEDS: NOREPINEPHRINE 8 MG/250ML KIT 250 ML IV SCH (18:08)
[2022-10-26] MEDS: PROPOFOL 100 ML IV SCH (21:45)
[2022-10-27] VITALS (59 sets, daily range): BP systolic 104–147; BP diastolic 53–81; PULSE 74–139; RESP 9–30; TEMP 97.7–100; O2SAT 92–100
[2022-10-27] MEDS: ONDANSETRON HCL 4 MG/2 ML VIAL IV PRN (02:22)
[2022-10-27] MEDS: MORPHINE SULFATE INJ 2 MG/ml SYRG IV PRN ×4 (02:22→21:01)
[2022-10-27] MEDS: MEROPENEM 1GM IVPB 100 ML IV SCH ×3 (05:32→21:01)
[2022-10-27] MEDS: FUROSEMIDE 40 MG/4 ML VIAL IV SCH ×2 (05:32→17:44)
[2022-10-27] MEDS: ACCU-CHEK COMFORT CURVE STRIP VI SCH ×4 (06:46→22:19)
[2022-10-27] MEDS: InsuLIN REG 1unit/0.01ml Soln (100units/ml) SC SCH ×4 (06:46→21:58)
[2022-10-27 08:31] LABS: Basophils # (auto) 0.3 10 ^3/uL (0-0.2); Basophils % (auto) 2.6 % (0.0-2.0); Eosinophils # (auto) 0 10 ^3/uL (0-0.8); Eosinophils % (auto) 0.3 % (0.0-7.0); Hematocrit 29.1 % (41.0-53.0); Hemoglobin 9.5 g/dL (13.5-17.5); Lymphocytes # (auto) 0.6 10 ^3/uL (0.4-5.4); Lymphocytes % (auto) 5.3 % (10.0-50.0); Mean Corpuscular Hemoglobin 29.3 pg (28.0-32.0); Mean Corpuscular Hgb Conc. 32.7 g/dL (32.0-36.0); Mean Corpuscular Volume 89.7 fL (80.0-100.0); Monocytes # (auto) 0.9 10 ^3/uL (0-1.3); Monocytes % (auto) 7.5 % (0.0-12.0); Neutrophils # (auto) 10.2 10 ^3/uL (1.6-8.6); Neutrophils % (auto) 84.3 % (37.0-80.0); Nucleated Red Blood Cells % 0.1 %; Red Blood Cells 3.24 10^6/uL (4.5-5.90); Red Cell Distribution Width 14.4 % (11.8-14.3); White Blood Cell 12.1 10^3/uL (4.4-10.8)
[2022-10-27 08:39] LABS: Alanine Aminotransferase 129 U/L (7-40); Albumin 3.5 g/dL (3.2-4.8); Alkaline Phosphatase 41 U/L (46-116); Anion Gap 9.6 (5-15); Aspartate Aminotransferase 33 U/L (13-40); BUN/Creatinine Ratio 29.7 (10.0-20.0); Blood Urea Nitrogen 19 mg/dL (9-23); Carbon Dioxide 29.4 mmol/L (20-30); Chloride 106 mmol/L (98-107); Glucose 162 mg/dL (74-106); Magnesium 1.9 mg/dL (1.6-2.6); Potassium 3.4 mmol/L (3.5-5.1); Sodium 145 mmol/L (136-145)
[2022-10-27 08:40] LABS: Bilirubin, Total 0.7 mg/dL (0.2-1.0)
[2022-10-27] MEDS: DOCUSATE ORAL LIQUID 100 MG/10 ML UD GT SCH ×2 (09:42→22:00)
[2022-10-27] MEDS: SODIUM CHLOR 0.9% PF (SALINE LOCK) 10ML VIAL/SYR IV SCH ×2 (09:42→21:02)
[2022-10-27] MEDS: PANTOPRAZOLE 40 MG/10 ML VIAL INJ IV SCH (09:42)
[2022-10-27] MEDS: ALBUTEROL SULF 2.5 MG/0.5ML(0.5%) NEB SOLN NEB SCH ×2 (10:11→10:13)
[2022-10-27] MEDS ORDERED: LIDOCAINE 2%HCL (LOCAL ANESTH.) INJ 20ML MDV ONE (13:43)
[2022-10-27] MEDS ORDERED: IOHEXOL 350 MG/ML 500ML BOTTLE IJ ONE (13:43)
[2022-10-27] MEDS: VANCOMYCIN 1GM/250ML 250 ML IV SCH (17:42)
[2022-10-27] MEDS: NOREPINEPHRINE 8 MG/250ML KIT 250 ML IV SCH (17:47)
[2022-10-27] MEDS: fentaNYL Drip 2500mCg/250mlNS 250 ML IV SCH (17:47)
[2022-10-27] MEDS: MIDAZOLAM DRIP 50 mg/50mL 50 ML IV SCH (17:47)
[2022-10-27] MEDS ORDERED: AMIODARONE BOLUS KIT 100 ML IV ONE (19:15)
[2022-10-27] MEDS ORDERED: POTASSIUM EFFERVESENT TAB 25 MEQ GT ONE (20:15)
[2022-10-27] MEDS: PROPOFOL 100 ML IV SCH (21:45)
[2022-10-28] VITALS (30 sets, daily range): BP systolic 11–133; BP diastolic 48–74; PULSE 69–84; RESP 12–27; TEMP 97.7–99.5; O2SAT 92–100
[2022-10-28] MEDS: MORPHINE SULFATE INJ 2 MG/ml SYRG IV PRN ×4 (01:30→19:48)
[2022-10-28 04:32] LABS: Basophils # (auto) 0.1 10 ^3/uL (0-0.2); Basophils % (auto) 0.8 % (0.0-2.0); Eosinophils # (auto) 0.1 10 ^3/uL (0-0.8); Eosinophils % (auto) 1.1 % (0.0-7.0); Hematocrit 27.5 % (41.0-53.0); Hemoglobin 8.8 g/dL (13.5-17.5); Lymphocytes # (auto) 0.8 10 ^3/uL (0.4-5.4); Lymphocytes % (auto) 6.6 % (10.0-50.0); Mean Corpuscular Hemoglobin 28.8 pg (28.0-32.0); Mean Corpuscular Hgb Conc. 32.1 g/dL (32.0-36.0); Mean Corpuscular Volume 89.6 fL (80.0-100.0); Monocytes # (auto) 0.8 10 ^3/uL (0-1.3); Monocytes % (auto) 6.4 % (0.0-12.0); Neutrophils # (auto) 10.2 10 ^3/uL (1.6-8.6); Neutrophils % (auto) 85.1 % (37.0-80.0); Red Blood Cells 3.07 10^6/uL (4.5-5.90); Red Cell Distribution Width 14.4 % (11.8-14.3); White Blood Cell 11.9 10^3/uL (4.4-10.8)
[2022-10-28 04:38] LABS: Alanine Aminotransferase 92 U/L (7-40); Albumin 3.2 g/dL (3.2-4.8); Alkaline Phosphatase 38 U/L (46-116); Anion Gap 7.4 (5-15); Aspartate Aminotransferase 28 U/L (13-40); BUN/Creatinine Ratio 32.8 (10.0-20.0); Bilirubin, Total 0.7 mg/dL (0.2-1.0); Blood Urea Nitrogen 19 mg/dL (9-23); Calcium 8.4 mg/dL (8.7-10.4); Carbon Dioxide 30.6 mmol/L (20-30); Chloride 106 mmol/L (98-107); Glucose 117 mg/dL (74-106); Potassium 3.6 mmol/L (3.5-5.1); Sodium 144 mmol/L (136-145); Total Protein 5.4 g/dL (5.7-8.2)
[2022-10-28] MEDS: VANCOMYCIN 1GM/250ML 250 ML IV SCH ×2 (05:02→17:19)
[2022-10-28] MEDS: FUROSEMIDE 40 MG/4 ML VIAL IV SCH (06:42)
[2022-10-28] MEDS: MEROPENEM 1GM IVPB 100 ML IV SCH ×3 (06:42→21:30)
[2022-10-28] MEDS: ACCU-CHEK COMFORT CURVE STRIP VI SCH ×4 (06:42→21:30)
[2022-10-28] MEDS: InsuLIN REG 1unit/0.01ml Soln (100units/ml) SC SCH ×4 (07:25→21:38)
[2022-10-28] MEDS: DOCUSATE ORAL LIQUID 100 MG/10 ML UD GT SCH ×2 (09:38→21:30)
[2022-10-28] MEDS: PANTOPRAZOLE 40 MG/10 ML VIAL INJ IV SCH (09:38)
[2022-10-28] MEDS: SODIUM CHLOR 0.9% PF (SALINE LOCK) 10ML VIAL/SYR IV SCH ×2 (09:55→21:30)
[2022-10-28] MEDS: ALBUTEROL SULF 2.5 MG/0.5ML(0.5%) NEB SOLN NEB SCH (10:05)
[2022-10-28] MEDS: MIDAZOLAM DRIP 50 mg/50mL 50 ML IV SCH (18:30)
[2022-10-28] MEDS: fentaNYL Drip 2500mCg/250mlNS 250 ML IV SCH (18:30)
[2022-10-28] MEDS: NOREPINEPHRINE 8 MG/250ML KIT 250 ML IV SCH (18:45)
[2022-10-28] MEDS: ENOXAPARIN SOD 40 MG/0.4 ML SYRINGE SC SCH (21:30)
[2022-10-28] MEDS: PROPOFOL 100 ML IV SCH (21:45)
[2022-10-29] VITALS (19 sets, daily range): BP systolic 101–122; BP diastolic 48–64; PULSE 67–83; RESP 13–33; TEMP 98.2–99.5; O2SAT 91–100
[2022-10-29] MEDS: VANCOMYCIN 1GM/250ML 250 ML IV SCH ×2 (04:54→18:10)
[2022-10-29 05:00] LABS: Chloride 106 mmol/L (98-107); Sodium 141 mmol/L (136-145)
[2022-10-29 05:01] LABS: Anion Gap 5.9 (5-15); Basophils # (auto) 0 10 ^3/uL (0-0.2); Basophils % (auto) 0.2 % (0.0-2.0); Calcium 8.6 mg/dL (8.7-10.4); Carbon Dioxide 29.1 mmol/L (20-30); Eosinophils # (auto) 0.2 10 ^3/uL (0-0.8); Eosinophils % (auto) 1.7 % (0.0-7.0); Hematocrit 26.5 % (41.0-53.0); Hemoglobin 8.6 g/dL (13.5-17.5); Lymphocytes # (auto) 0.8 10 ^3/uL (0.4-5.4); Lymphocytes % (auto) 6.9 % (10.0-50.0); Mean Corpuscular Hemoglobin 29.3 pg (28.0-32.0); Mean Corpuscular Hgb Conc. 32.5 g/dL (32.0-36.0); Mean Corpuscular Volume 90.1 fL (80.0-100.0); Monocytes # (auto) 0.7 10 ^3/uL (0-1.3); Monocytes % (auto) 5.5 % (0.0-12.0); Neutrophils # (auto) 10.3 10 ^3/uL (1.6-8.6); Neutrophils % (auto) 85.7 % (37.0-80.0); Red Blood Cells 2.94 10^6/uL (4.5-5.90); Red Cell Distribution Width 14.1 % (11.8-14.3)
[2022-10-29 05:07] LABS: BUN/Creatinine Ratio 29.4 (10.0-20.0); Blood Urea Nitrogen 15 mg/dL (9-23); Glucose 116 mg/dL (74-106)
[2022-10-29] MEDS: MEROPENEM 1GM IVPB 100 ML IV SCH ×3 (05:56→21:45)
[2022-10-29] MEDS: InsuLIN REG 1unit/0.01ml Soln (100units/ml) SC SCH ×4 (06:01→21:46)
[2022-10-29] MEDS: ACCU-CHEK COMFORT CURVE STRIP VI SCH ×4 (06:01→21:46)
[2022-10-29] MEDS: ALBUTEROL SULF 2.5 MG/0.5ML(0.5%) NEB SOLN NEB SCH (10:29)
[2022-10-29] MEDS: FUROSEMIDE 20 MG/2 ML VIAL IV SCH (11:12)
[2022-10-29] MEDS: SODIUM CHLOR 0.9% PF (SALINE LOCK) 10ML VIAL/SYR IV SCH ×2 (11:12→21:45)
[2022-10-29] MEDS: PANTOPRAZOLE 40 MG/10 ML VIAL INJ IV SCH (11:12)
[2022-10-29] MEDS: ENOXAPARIN SOD 40 MG/0.4 ML SYRINGE SC SCH (11:12)
[2022-10-29] MEDS: DOCUSATE ORAL LIQUID 100 MG/10 ML UD GT SCH ×2 (11:13→21:46)
[2022-10-29] MEDS: ENOXAPARIN SOD 80 MG/0.8ML SYRINGE SC SCH (21:46)
[2022-10-30] VITALS (10 sets, daily range): BP systolic 96–107; BP diastolic 48–60; PULSE 73–85; RESP 16–20; TEMP 97.3–99; O2SAT 90–100
[2022-10-30] MEDS: VANCOMYCIN 1GM/250ML 250 ML IV SCH ×2 (05:27→18:30)
[2022-10-30] MEDS: ACCU-CHEK COMFORT CURVE STRIP VI SCH ×4 (06:37→21:20)
[2022-10-30] MEDS: InsuLIN REG 1unit/0.01ml Soln (100units/ml) SC SCH ×4 (06:37→21:22)
[2022-10-30] MEDS: MEROPENEM 1GM IVPB 100 ML IV SCH ×3 (06:43→21:21)
[2022-10-30] MEDS: DOCUSATE ORAL LIQUID 100 MG/10 ML UD GT SCH ×2 (10:00→21:19)
[2022-10-30] MEDS: SODIUM CHLOR 0.9% PF (SALINE LOCK) 10ML VIAL/SYR IV SCH ×2 (10:00→21:21)
[2022-10-30] MEDS: ENOXAPARIN SOD 80 MG/0.8ML SYRINGE SC SCH ×2 (10:24→21:20)
[2022-10-30] MEDS: FUROSEMIDE 20 MG/2 ML VIAL IV SCH (10:26)
[2022-10-30] MEDS: PANTOPRAZOLE 40 MG/10 ML VIAL INJ IV SCH (10:26)
[2022-10-30] MEDS: ALBUTEROL SULF 2.5 MG/0.5ML(0.5%) NEB SOLN NEB SCH (10:37)
[2022-10-31] VITALS (7 sets, daily range): BP systolic 113–122; BP diastolic 62–67; PULSE 71–94; RESP 18–22; TEMP 98.1–98.9; O2SAT 93–100
[2022-10-31] MEDS: VANCOMYCIN 1GM/250ML 250 ML IV SCH (05:20)
[2022-10-31] MEDS: InsuLIN REG 1unit/0.01ml Soln (100units/ml) SC SCH ×2 (06:17→11:30)
[2022-10-31] MEDS: ACCU-CHEK COMFORT CURVE STRIP VI SCH ×2 (06:17→11:30)
[2022-10-31] MEDS: MEROPENEM 1GM IVPB 100 ML IV SCH ×2 (06:52→14:00)
[2022-10-31 07:00] LABS: Basophils # (auto) 0.1 10 ^3/uL (0-0.2); Basophils % (auto) 0.7 % (0.0-2.0); Eosinophils # (auto) 0.2 10 ^3/uL (0-0.8); Eosinophils % (auto) 1.3 % (0.0-7.0); Hematocrit 27.3 % (41.0-53.0); Hemoglobin 8.9 g/dL (13.5-17.5); Lymphocytes % (auto) 8.1 % (10.0-50.0); Mean Corpuscular Hemoglobin 29.5 pg (28.0-32.0); Mean Corpuscular Hgb Conc. 32.7 g/dL (32.0-36.0); Mean Corpuscular Volume 90.4 fL (80.0-100.0); Monocytes # (auto) 0.8 10 ^3/uL (0-1.3); Monocytes % (auto) 6.4 % (0.0-12.0); Neutrophils # (auto) 10.8 10 ^3/uL (1.6-8.6); Neutrophils % (auto) 83.5 % (37.0-80.0); Red Blood Cells 3.02 10^6/uL (4.5-5.90); Red Cell Distribution Width 14.1 % (11.8-14.3); White Blood Cell 12.9 10^3/uL (4.4-10.8)
[2022-10-31 07:32] LABS: Chloride 103 mmol/L (98-107)
[2022-10-31 07:33] LABS: Anion Gap 7.3 (5-15); Carbon Dioxide 23.7 mmol/L (20-30)
[2022-10-31 07:34] LABS: Calcium 8.6 mg/dL (8.7-10.4); Sodium 134 mmol/L (136-145)
[2022-10-31 07:39] LABS: Blood Urea Nitrogen 11 mg/dL (9-23); Glucose 134 mg/dL (74-106); Magnesium 2.1 mg/dL (1.6-2.6)
[2022-10-31] MEDS: PANTOPRAZOLE 40 MG/10 ML VIAL INJ IV SCH (09:05)
[2022-10-31] MEDS: ENOXAPARIN SOD 80 MG/0.8ML SYRINGE SC SCH (09:06)
[2022-10-31] MEDS: FUROSEMIDE 20 MG/2 ML VIAL IV SCH (09:13)
[2022-10-31] MEDS: SODIUM CHLOR 0.9% PF (SALINE LOCK) 10ML VIAL/SYR IV SCH (10:00)
[2022-10-31] MEDS: DOCUSATE ORAL LIQUID 100 MG/10 ML UD GT SCH (10:00)
[2022-10-31] MEDS: ALBUTEROL SULF 2.5 MG/0.5ML(0.5%) NEB SOLN NEB SCH (10:00)
[2022-10-31 14:06] LABS: COVID19 ANTIGEN SOFIA FIA NEGATIVE (NEGATIVE)
== END 2022-10-31 14:30 | DRG 459 ==
LOC: SUR 06:21 → TELE 13:16 → DOU IN ICU 16:40 → ICU CENTRL 10-21 00:04 → ICU WEST 10-21 16:21 → TELE-WESTW 10-29 17:13
PROVIDERS: ADMIT Orthopaedic Surgery; ATTEND Internal Medicine
PROC: 30233N1 Transfusion of Nonautologous Red Blood Cells into Peripheral Vein, Percutaneous Approach (ICD-10-PCS; 2022-10-18)
PROC: 5A1955Z Respiratory Ventilation, Greater than 96 Consecutive Hours (ICD-10-PCS; principal; 2022-10-20)
PROC: 0BH17EZ Insertion of Endotracheal Airway into Trachea, Via Natural or Artificial Opening (ICD-10-PCS; 2022-10-20)
PROC: 0SG0071 Fusion of Lumbar Vertebral Joint with Autologous Tissue Substitute, Posterior Approach, Posterior Column, Open Approach (ICD-10-PCS; 2022-10-20)
PROC: 00NY0ZZ Release Lumbar Spinal Cord, Open Approach (ICD-10-PCS; 2022-10-20)
PROC: 01NB0ZZ Release Lumbar Nerve, Open Approach (ICD-10-PCS; 2022-10-20)
PROC: 0QP004Z Removal of Internal Fixation Device from Lumbar Vertebra, Open Approach (ICD-10-PCS; 2022-10-20)
PROC: 4A11X4G Monitoring of Peripheral Nervous Electrical Activity, Intraoperative, External Approach (ICD-10-PCS; 2022-10-20)
PROC: 5A12012 Performance of Cardiac Output, Single, Manual (ICD-10-PCS; 2022-10-20)
PROC: 02H633Z Insertion of Infusion Device into Right Atrium, Percutaneous Approach (ICD-10-PCS; 2022-10-21)
PROC: B548ZZA Ultrasonography of Superior Vena Cava, Guidance (ICD-10-PCS; 2022-10-21)
PROC: 4A023N7 Measurement of Cardiac Sampling and Pressure, Left Heart, Percutaneous Approach (ICD-10-PCS; 2022-10-21)
PROC: B211YZZ Fluoroscopy of Multiple Coronary Arteries using Other Contrast (ICD-10-PCS; 2022-10-21)
PROC: B215YZZ Fluoroscopy of Left Heart using Other Contrast (ICD-10-PCS; 2022-10-21)
DX: M48.062 Spinal stenosis, lumbar region with neurogenic claudication (principal); I21.4 Non-ST elevation (NSTEMI) myocardial infarction; I26.93 Single subsegmental thrombotic pulmonary embolism without acute cor pulmonale; I49.01 Ventricular fibrillation; J18.9 Pneumonia, unspecified organism; J96.01 Acute respiratory failure with hypoxia; I46.9 Cardiac arrest, cause unspecified; R57.0 Cardiogenic shock; I69.351 Hemiplegia and hemiparesis following cerebral infarction affecting right dominant side; J98.11 Atelectasis; K92.2 Gastrointestinal hemorrhage, unspecified; I47.20 Ventricular tachycardia, unspecified; M96.1 Postlaminectomy syndrome, not elsewhere classified; Z20.822 Contact with and (suspected) exposure to COVID-19; E11.9 Type 2 diabetes mellitus without complications; D63.8 Anemia in other chronic diseases classified elsewhere; I25.10 Atherosclerotic heart disease of native coronary artery without angina pectoris; K82.8 Other specified diseases of gallbladder; I10 Essential (primary) hypertension; E78.5 Hyperlipidemia, unspecified; N47.2 Paraphimosis; I48.0 Paroxysmal atrial fibrillation; Z79.82 Long term (current) use of aspirin; Z79.899 Other long term (current) drug therapy; Z79.84 Long term (current) use of oral hypoglycemic drugs; Z87.891 Personal history of nicotine dependence; Z98.61 Coronary angioplasty status
CPT/HCPCS: 36415; 36569; 36600; 70450; 71045; 71260; 71275; 72100; 74177; 76000; 76937; 80048; 80053; 80061; 80202; 81001; 82805; 82962; 83036; 83605; 83735; 83880; 84100; 84132; 84443; 84484; 85014; 85018; 85025; 85379; 85610; 85730; 86850; 86900; 86901; 86920; 87040; 87070; 87081; 87205; 87426; 92610; 93005; 93306; 93458; 93970; 94002; 94003; 94640; 97110; 97116; 97163; 97530; 99152; C1894; C9113; G0378; J0330; J0690; J0696; J1100; J1815; J2185; J2250; J2405; J2704; J3480; J7042; P9047; Q9967

== ENCOUNTER 2022-11-01 18:48 | Inpatient (IN) | payer MEDICARE, OTHER ==
[~2022-11-01] VITALS: Ht 160 cm; Wt 78.1 kg
[2022-11-01 19:42] LABS: Basophils # (auto) 0.1 10 ^3/uL (0-0.2); Basophils % (auto) 0.7 % (0.0-2.0); Eosinophils # (auto) 0 10 ^3/uL (0-0.8); Eosinophils % (auto) 0.4 % (0.0-7.0); Hematocrit 27.1 % (41.0-53.0); Hemoglobin 8.8 g/dL (13.5-17.5); Lymphocytes # (auto) 0.9 10 ^3/uL (0.4-5.4); Lymphocytes % (auto) 6.9 % (10.0-50.0); Mean Corpuscular Hemoglobin 28.7 pg (28.0-32.0); Mean Corpuscular Hgb Conc. 32.3 g/dL (32.0-36.0); Mean Corpuscular Volume 88.8 fL (80.0-100.0); Monocytes % (auto) 8.2 % (0.0-12.0); Neutrophils # (auto) 10.7 10 ^3/uL (1.6-8.6); Neutrophils % (auto) 83.8 % (37.0-80.0); Red Blood Cells 3.05 10^6/uL (4.5-5.90); Red Cell Distribution Width 14.4 % (11.8-14.3); White Blood Cell 12.8 10^3/uL (4.4-10.8)
[2022-11-01 20:00] LABS: Alanine Aminotransferase 41 U/L (7-40); Albumin 3.3 g/dL (3.2-4.8); Alkaline Phosphatase 45 U/L (46-116); Aspartate Aminotransferase 24 U/L (13-40); BUN/Creatinine Ratio 24.3 (10.0-20.0); Blood Urea Nitrogen 17 mg/dL (9-23); Calcium 8.7 mg/dL (8.7-10.4); Chloride 107 mmol/L (98-107); Glucose 153 mg/dL (74-106); Potassium 3.8 mmol/L (3.5-5.1); Sodium 139 mmol/L (136-145)
[2022-11-01 20:01] LABS: Bilirubin, Total 0.6 mg/dL (0.2-1.0); Total Protein 5.4 g/dL (5.7-8.2)
[2022-11-01] MEDS ORDERED: IOHEXOL 350 MG/ML 100ML IJ ONE ×2 (20:04→20:55)
[2022-11-01 20:38] VITALS: PULSE 99; RESP 29; O2SAT 100
[2022-11-01] MEDS ORDERED: CEFEPIME 1GM/ 50ML 50 ML IV ONE (21:30)
[2022-11-01] MEDS ORDERED: VANCOMYCIN 1GM/250ML 250 ML IV ONE ×2 (21:30→23:45)
[2022-11-01] MEDS ORDERED: ASPirin 325 MG TAB PO ONE (22:00)
[2022-11-01] MEDS ORDERED: MORPHINE SULFATE INJ 2 MG/ml SYRG IV PRN (23:00)
[2022-11-01] MEDS ORDERED: FUROSEMIDE 40 MG/4 ML VIAL IV ONE (23:00)
[2022-11-01] MEDS ORDERED: VANCOMYCIN PER PHARMACY 0 MG IV SCH (23:00)
[2022-11-01] MEDS ORDERED: ENOXAPARIN SOD 100 MG/1 ML SYRINGE SC ONE (23:00)
[2022-11-01] MEDS ORDERED: NITROGLYCERIN 0.4 MG SL TAB SL PRN (23:00)
[2022-11-01] MEDS ORDERED: DEXTROSE (50%) 50ML SYRG IV PRN (23:00)
[2022-11-01] MEDS ORDERED: ONDANSETRON HCL 4 MG/2 ML VIAL IV PRN (23:00)
[2022-11-01 23:58] LABS: INR 1.38 (0.9-1.15); Partial Thromboplastin Time 32.9 SEC (24.5-34.5); Prothrombin Time 14.2 sec (9.3-11.8)
[2022-11-02] VITALS (10 sets, daily range): BP systolic 114; BP diastolic 60; PULSE 78–99; RESP 18–30; TEMP 98; O2SAT 92–100
[2022-11-02 00:09] LABS: COVID19 ANTIGEN SOFIA FIA NEGATIVE (NEGATIVE)
[2022-11-02] MEDS: ACCU-CHEK COMFORT CURVE STRIP VI SCH ×4 (00:27→18:00)
[2022-11-02] MEDS: InsuLIN REG 1unit/0.01ml Soln (100units/ml) SC SCH ×4 (00:31→18:55)
[2022-11-02 02:56] LABS: Urine Bacteria NONE SEEN /hpf (None Seen); Urine Blood Negative /uL (Negative); Urine Clarity Clear (Clear); Urine Color Yellow (Yellow); Urine Protein, UAD TRACE (Negative); Urine Urobilinogen Normal (Negative); Urine WBC <1 /hpf (0 - 3); Urine pH 5.5 (5.0-8.0)
[2022-11-02 03:23] LABS: Urine Specific Gravity > 1.050 (1.001-1.035)
[2022-11-02] MEDS ORDERED: AMIODARONE BOLUS KIT 100 ML IV ONE (04:15)
[2022-11-02] MEDS ORDERED: AMIODARONE HCL (50 MG/ ML) 3 ML VIAL IV ONE (04:22)
[2022-11-02] MEDS ORDERED: AMIODARONE 450mg/250ml AE 250 ML IV SCH (04:30)
[2022-11-02 06:18] LABS: Basophils # (auto) 0.1 10 ^3/uL (0-0.2); Basophils % (auto) 0.6 % (0.0-2.0); Eosinophils # (auto) 0.1 10 ^3/uL (0-0.8); Eosinophils % (auto) 0.6 % (0.0-7.0); Hemoglobin 8.3 g/dL (13.5-17.5); Lymphocytes # (auto) 0.9 10 ^3/uL (0.4-5.4); Lymphocytes % (auto) 6.9 % (10.0-50.0); Mean Corpuscular Hemoglobin 29.3 pg (28.0-32.0); Mean Corpuscular Hgb Conc. 33.4 g/dL (32.0-36.0); Mean Corpuscular Volume 87.8 fL (80.0-100.0); Monocytes # (auto) 0.5 10 ^3/uL (0-1.3); Monocytes % (auto) 4.4 % (0.0-12.0); Neutrophils # (auto) 10.9 10 ^3/uL (1.6-8.6); Neutrophils % (auto) 87.5 % (37.0-80.0); Red Blood Cells 2.85 10^6/uL (4.5-5.90); Red Cell Distribution Width 14.3 % (11.8-14.3); White Blood Cell 12.4 10^3/uL (4.4-10.8)
[2022-11-02] MEDS: FUROSEMIDE 20 MG/2 ML VIAL IV SCH ×2 (06:49→18:02)
[2022-11-02 06:53] LABS: Alanine Aminotransferase 38 U/L (7-40); Albumin 3.3 g/dL (3.2-4.8); Alkaline Phosphatase 43 U/L (46-116); Anion Gap 10.1 (5-15); Aspartate Aminotransferase 26 U/L (13-40); Bilirubin, Total 0.7 mg/dL (0.2-1.0); Blood Urea Nitrogen 15 mg/dL (9-23); Calcium 8.4 mg/dL (8.7-10.4); Carbon Dioxide 23.9 mmol/L (20-30); Chloride 105 mmol/L (98-107); Glucose 174 mg/dL (74-106); Potassium 3.2 mmol/L (3.5-5.1); Sodium 139 mmol/L (136-145); Total Protein 5.5 g/dL (5.7-8.2)
[2022-11-02] MEDS: ALBUTEROL SULF 2.5 MG/0.5ML(0.5%) NEB SOLN NEB PRN ×3 (06:53→19:02)
[2022-11-02 06:55] LABS: BUN/Creatinine Ratio 21.1 (10.0-20.0)
[2022-11-02 09:09] LABS: Base Excess 2.8 mmol/L (-2.0-2.0)
[2022-11-02] MEDS ORDERED: POTASSIUM CHL 20 Meq TABLET PO ONE ×2 (09:15→17:45)
[2022-11-02] MEDS ORDERED: DIGOXIN (250MCG/ML) 2 ML AMPULE IV ONE (09:15)
[2022-11-02 09:36] LABS: Magnesium 1.7 mg/dL (1.6-2.6)
[2022-11-02 09:38] LABS: Phosphorus 3.8 mg/dL (2.4-5.1)
[2022-11-02] MEDS ORDERED: ASPirin 81 mg TAB PO SCH (10:00)
[2022-11-02] MEDS ORDERED: CLOPIDOGREL BISULFATE 75 MG TAB PO SCH (10:00)
[2022-11-02] MEDS: LISINOPRIL 20 MG TAB PO SCH (10:00)
[2022-11-02] MEDS: CEFEPIME 1GM/ 50ML 50 ML IV SCH ×2 (10:52→23:15)
[2022-11-02] MEDS: PANTOPRAZOLE 40 MG TAB PO SCH (10:52)
[2022-11-02] MEDS: AMIODARONE 450mg/250ml AE 250 ML IV SCH (11:48)
[2022-11-02] MEDS: ENOXAPARIN SOD 60 MG/0.6 ML SYRINGE SC SCH ×2 (14:17→23:16)
[2022-11-02] MEDS: VANCOMYCIN 750mg/250ml 250 ML IV SCH (15:41)
[2022-11-02] MEDS ORDERED: MAGNESIUM OXIDE 400 MG TAB PO ONE (17:45)
[2022-11-02] MEDS: ACETAMINOPHEN 325 MG TAB PO PRN (18:01)
[2022-11-02 20:53] LABS: Alanine Aminotransferase 37 U/L (7-40); Albumin 3.4 g/dL (3.2-4.8); Alkaline Phosphatase 48 U/L (46-116); Anion Gap 6.8 (5-15); Aspartate Aminotransferase 21 U/L (13-40); BUN/Creatinine Ratio 19.5 (10.0-20.0); Bilirubin, Total 0.6 mg/dL (0.2-1.0); Blood Urea Nitrogen 17 mg/dL (9-23); Calcium 8.7 mg/dL (8.7-10.4); Carbon Dioxide 25.2 mmol/L (20-30); Chloride 105 mmol/L (98-107); Glucose 192 mg/dL (74-106); Potassium 3.7 mmol/L (3.5-5.1); Sodium 137 mmol/L (136-145); Total Protein 5.9 g/dL (5.7-8.2)
[2022-11-02] MEDS: ATORVASTATIN 20 MG TAB PO SCH (23:15)
[2022-11-03] VITALS (15 sets, daily range): BP systolic 90–112; BP diastolic 54–66; PULSE 75–120; RESP 19–39; O2SAT 85–100
[2022-11-03] MEDS: ACCU-CHEK COMFORT CURVE STRIP VI SCH ×4 (00:10→18:29)
[2022-11-03] MEDS: AMIODARONE 450mg/250ml AE 250 ML IV SCH ×2 (00:20→16:30)
[2022-11-03] MEDS: InsuLIN REG 1unit/0.01ml Soln (100units/ml) SC SCH ×4 (00:20→18:00)
[2022-11-03 00:52] LABS: Base Excess 0.9 mmol/L (-2.0-2.0)
[2022-11-03] MEDS: ALBUTEROL SULF 2.5 MG/0.5ML(0.5%) NEB SOLN NEB PRN ×2 (00:58→07:26)
[2022-11-03] MEDS ORDERED: FUROSEMIDE 40 MG/4 ML VIAL IV ONE (01:00)
[2022-11-03] MEDS: VANCOMYCIN 750mg/250ml 250 ML IV SCH ×2 (05:17→20:00)
[2022-11-03] MEDS: FUROSEMIDE 20 MG/2 ML VIAL IV SCH ×2 (05:39→18:00)
[2022-11-03] MEDS ORDERED: ETOMIDATE (2MG/ML) 20ML VIAL IV ONE ×2 (07:01→07:05)
[2022-11-03] MEDS ORDERED: SUCCINYLCHOLINE CHLORIDE 20 MG/ML 10ML VIAL IV ONE ×2 (07:02→07:05)
[2022-11-03] MEDS ORDERED: MIDAZOLAM DRIP 50 mg/50mL 50 ML IV ONE (07:03)
[2022-11-03] MEDS: MIDAZOLAM DRIP 50 mg/50mL 50 ML IV SCH ×3 (07:10→12:17)
[2022-11-03 07:29] LABS: Basophils # (auto) 0 10 ^3/uL (0-0.2); Basophils % (auto) 0.2 % (0.0-2.0); Eosinophils # (auto) 0 10 ^3/uL (0-0.8); Eosinophils % (auto) 0.1 % (0.0-7.0); Hematocrit 26.3 % (41.0-53.0); Hemoglobin 8.2 g/dL (13.5-17.5); Lymphocytes # (auto) 0.6 10 ^3/uL (0.4-5.4); Lymphocytes % (auto) 3.4 % (10.0-50.0); Mean Corpuscular Hemoglobin 29.3 pg (28.0-32.0); Mean Corpuscular Hgb Conc. 31.2 g/dL (32.0-36.0); Monocytes # (auto) 1.1 10 ^3/uL (0-1.3); Monocytes % (auto) 6.5 % (0.0-12.0); Neutrophils # (auto) 15.7 10 ^3/uL (1.6-8.6); Neutrophils % (auto) 89.8 % (37.0-80.0); Nucleated Red Blood Cells % 0.1 %; White Blood Cell 17.5 10^3/uL (4.4-10.8)
[2022-11-03] MEDS: fentaNYL Drip 2500mCg/250mlNS 250 ML IV SCH ×3 (07:30→21:23)
[2022-11-03] MEDS ORDERED: fentaNYL Drip 2500mCg/250mlNS 250 ML IV ONE (07:36)
[2022-11-03 07:51] LABS: Base Excess -6.2 mmol/L (-2.0-2.0)
[2022-11-03] MEDS: NOREPINEPHRINE 8 MG/250ML KIT 250 ML IV SCH (09:05)
[2022-11-03] MEDS ORDERED: ACETAMINOPHEN 650 MG RECT SUPP PR PRN (09:45)
[2022-11-03] MEDS: LISINOPRIL 20 MG TAB PO SCH (10:00)
[2022-11-03] MEDS: PANTOPRAZOLE 40 MG TAB PO SCH (10:00)
[2022-11-03] MEDS: ENOXAPARIN SOD 60 MG/0.6 ML SYRINGE SC SCH ×2 (11:55→23:10)
[2022-11-03] MEDS: CEFEPIME 1GM/ 50ML 50 ML IV SCH ×2 (11:57→23:11)
[2022-11-03] MEDS: SODIUM FERR GLUC 62.5MG/5ML 125 MG in SODIUM CHL 0.9% 100 ML IV SCH (12:00)
[2022-11-03] MEDS: ATORVASTATIN 20 MG TAB PO SCH (22:00)
[2022-11-04] VITALS (108 sets, daily range): BP systolic 86–124; BP diastolic 32–68; PULSE 67–134; RESP 13–28; TEMP 97.7–102.6; O2SAT 85–100
[2022-11-04] MEDS: ACCU-CHEK COMFORT CURVE STRIP VI SCH ×5 (00:57→23:52)
[2022-11-04] MEDS: InsuLIN REG 1unit/0.01ml Soln (100units/ml) SC SCH ×5 (00:58→23:51)
[2022-11-04] MEDS ORDERED: FAMO20TA10 PO (02:12)
[2022-11-04] MEDS ORDERED: HYDR-4798 PO (02:12)
[2022-11-04] MEDS ORDERED: ONDA-155 PO (02:12)
[2022-11-04] MEDS ORDERED: PANT40TA2 PO (02:12)
[2022-11-04] MEDS ORDERED: ATOR-47 PO (02:12)
[2022-11-04] MEDS ORDERED: MELA5TAB10 PO (02:12)
[2022-11-04] MEDS ORDERED: APIX5TAB PO (02:12)
[2022-11-04] MEDS ORDERED: VANC500I IV (02:12)
[2022-11-04] MEDS ORDERED: MAGN400S25 PO (02:12)
[2022-11-04] MEDS ORDERED: FURO1TAB33 PO (02:12)
[2022-11-04] MEDS ORDERED: ALBU0.084 NEB (02:12)
[2022-11-04] MEDS ORDERED: MERO1INJ32 IV (02:12)
[2022-11-04] MEDS ORDERED: DOCU-94 PO (02:12)
[2022-11-04] MEDS: NOREPINEPHRINE 8 MG/250ML KIT 250 ML IV SCH (02:51)
[2022-11-04] MEDS ORDERED: AMIODARONE 450mg/250ml AE 250 ML IV SCH (04:00)
[2022-11-04] MEDS: MIDAZOLAM DRIP 50 mg/50mL 50 ML IV SCH ×3 (04:09→21:59)
[2022-11-04 04:29] LABS: Basophils # (auto) 0.1 10 ^3/uL (0-0.2); Eosinophils # (auto) 0.1 10 ^3/uL (0-0.8); Eosinophils % (auto) 0.7 % (0.0-7.0); Hemoglobin 8.5 g/dL (13.5-17.5); Monocytes # (auto) 0.7 10 ^3/uL (0-1.3)
[2022-11-04 04:31] LABS: Basophils % (auto) 0.3 % (0.0-2.0); Hematocrit 26.1 % (41.0-53.0); Lymphocytes # (auto) 1.3 10 ^3/uL (0.4-5.4); Mean Corpuscular Hemoglobin 29.3 pg (28.0-32.0); Mean Corpuscular Hgb Conc. 32.6 g/dL (32.0-36.0); Mean Corpuscular Volume 89.6 fL (80.0-100.0); Monocytes % (auto) 3.8 % (0.0-12.0); Neutrophils # (auto) 16.1 10 ^3/uL (1.6-8.6); Neutrophils % (auto) 88.2 % (37.0-80.0); Red Blood Cells 2.91 10^6/uL (4.5-5.90); Red Cell Distribution Width 14.8 % (11.8-14.3); White Blood Cell 18.2 10^3/uL (4.4-10.8)
[2022-11-04 04:56] LABS: Alanine Aminotransferase 977 U/L (7-40); Albumin 3.1 g/dL (3.2-4.8); Alkaline Phosphatase 53 U/L (46-116); Anion Gap 7.4 (5-15); BUN/Creatinine Ratio 16.6 (10.0-20.0); Bilirubin, Total 0.6 mg/dL (0.2-1.0); Calcium 7.9 mg/dL (8.7-10.4); Carbon Dioxide 25.6 mmol/L (20-30); Chloride 103 mmol/L (98-107); Glucose 153 mg/dL (74-106); Magnesium 1.8 mg/dL (1.6-2.6); Sodium 136 mmol/L (136-145)
[2022-11-04 04:57] LABS: Total Protein 5.5 g/dL (5.7-8.2)
[2022-11-04 05:08] LABS: Aspartate Aminotransferase 1201 U/L (13-40); Blood Urea Nitrogen 32 mg/dL (9-23)
[2022-11-04] MEDS: FUROSEMIDE 20 MG/2 ML VIAL IV SCH (06:00)
[2022-11-04] MEDS: fentaNYL Drip 2500mCg/250mlNS 250 ML IV SCH (06:59)
[2022-11-04 07:27] LABS: Base Excess -4.3 mmol/L (-2.0-2.0)
[2022-11-04] MEDS: PANTOPRAZOLE 40 MG TAB PO SCH (10:00)
[2022-11-04] MEDS: LISINOPRIL 20 MG TAB PO SCH (10:00)
[2022-11-04] MEDS: CEFEPIME 1GM/ 50ML 50 ML IV SCH ×2 (10:08→21:57)
[2022-11-04] MEDS: ACETAMINOPHEN 325 MG TAB PO PRN (10:08)
[2022-11-04] MEDS: ENOXAPARIN SOD 60 MG/0.6 ML SYRINGE SC SCH ×2 (10:08→21:58)
[2022-11-04] MEDS: AMIODARONE 450mg/250ml AE 250 ML IV SCH (10:10)
[2022-11-04] MEDS: SODIUM FERR GLUC 62.5MG/5ML 125 MG in SODIUM CHL 0.9% 100 ML IV SCH (13:40)
[2022-11-04] MEDS: DOXYCYCLINE 100MG/250ML 250 ML IV SCH (20:14)
[2022-11-04] MEDS: ATORVASTATIN 20 MG TAB PO SCH (21:57)
[2022-11-05] VITALS (107 sets, daily range): BP systolic 82–124; BP diastolic 45–69; PULSE 59–75; RESP 14–26; TEMP 98.2–101.3; O2SAT 90–100
[2022-11-05] MEDS: MIDAZOLAM DRIP 50 mg/50mL 50 ML IV SCH ×4 (02:14→22:35)
[2022-11-05] MEDS: NOREPINEPHRINE 8 MG/250ML KIT 250 ML IV SCH ×3 (02:15→22:35)
[2022-11-05] MEDS: AMIODARONE 450mg/250ml AE 250 ML IV SCH ×3 (02:28→19:57)
[2022-11-05] MEDS: ACCU-CHEK COMFORT CURVE STRIP VI SCH ×3 (05:44→16:58)
[2022-11-05] MEDS: InsuLIN REG 1unit/0.01ml Soln (100units/ml) SC SCH ×3 (05:44→16:58)
[2022-11-05 06:02] LABS: Basophils # (auto) 0.1 10 ^3/uL (0-0.2); Hemoglobin 8.4 g/dL (13.5-17.5); Monocytes # (auto) 0.9 10 ^3/uL (0-1.3); Red Cell Distribution Width 14.9 % (11.8-14.3); White Blood Cell 20.9 10^3/uL (4.4-10.8)
[2022-11-05 06:05] LABS: Basophils % (auto) 0.5 % (0.0-2.0); Eosinophils # (auto) 0.2 10 ^3/uL (0-0.8); Eosinophils % (auto) 0.8 % (0.0-7.0); Lymphocytes # (auto) 1.2 10 ^3/uL (0.4-5.4); Lymphocytes % (auto) 5.8 % (10.0-50.0); Mean Corpuscular Hemoglobin 29.4 pg (28.0-32.0); Mean Corpuscular Hgb Conc. 32.2 g/dL (32.0-36.0); Mean Corpuscular Volume 91.2 fL (80.0-100.0); Monocytes % (auto) 4.4 % (0.0-12.0); Neutrophils # (auto) 18.5 10 ^3/uL (1.6-8.6); Neutrophils % (auto) 88.5 % (37.0-80.0); Nucleated Red Blood Cells % 0.2 %; Red Blood Cells 2.85 10^6/uL (4.5-5.90)
[2022-11-05] MEDS: fentaNYL Drip 2500mCg/250mlNS 250 ML IV SCH ×2 (06:42→09:42)
[2022-11-05 07:29] LABS: Anion Gap 12.4 (5-15); Carbon Dioxide 16.6 mmol/L (20-30); Chloride 100 mmol/L (98-107); Potassium 4.7 mmol/L (3.5-5.1)
[2022-11-05 07:30] LABS: Calcium 7.8 mg/dL (8.5-10.1)
[2022-11-05 07:35] LABS: BUN/Creatinine Ratio 15.9 (10.0-20.0); Blood Urea Nitrogen 40 mg/dL (9-23); Glucose 162 mg/dL (74-106)
[2022-11-05 07:55] LABS: Sodium 129 mmol/L (136-145)
[2022-11-05 08:32] LABS: Base Excess -5.5 mmol/L (-2.0-2.0)
[2022-11-05] MEDS: ENOXAPARIN SOD 60 MG/0.6 ML SYRINGE SC SCH (09:41)
[2022-11-05] MEDS: CEFEPIME 1GM/ 50ML 50 ML IV SCH ×2 (09:41→22:35)
[2022-11-05] MEDS: PANTOPRAZOLE 40 MG TAB PO SCH (09:42)
[2022-11-05] MEDS: DOXYCYCLINE 100MG/250ML 250 ML IV SCH ×2 (09:47→19:58)
[2022-11-05] MEDS: ACETAMINOPHEN 325 MG TAB PO PRN (09:48)
[2022-11-05] MEDS: PANTOPRAZOLE 40 MG/10 ML VIAL INJ IV SCH (10:14)
[2022-11-05] MEDS: PROPOFOL 100 ML IV SCH (11:10)
[2022-11-05] MEDS: SODIUM CHLORIDE 0.9% 1,000 ML IV SCH ×2 (11:23→20:50)
[2022-11-05] MEDS ORDERED: SODIUM CHLORIDE 0.9% 250 ML IV ONE (11:30)
[2022-11-05] MEDS: SODIUM FERR GLUC 62.5MG/5ML 125 MG in SODIUM CHL 0.9% 100 ML IV SCH (14:09)
[2022-11-05] MEDS: ATORVASTATIN 20 MG TAB PO SCH (22:36)
[2022-11-06] VITALS (107 sets, daily range): BP systolic 91–136; BP diastolic 47–66; PULSE 56–79; RESP 10–24; TEMP 95.4–101.3; O2SAT 91–100
[2022-11-06] MEDS: ACCU-CHEK COMFORT CURVE STRIP VI SCH ×5 (00:25→23:59)
[2022-11-06] MEDS: InsuLIN REG 1unit/0.01ml Soln (100units/ml) SC SCH ×4 (00:29→18:00)
[2022-11-06] MEDS: PROPOFOL 100 ML IV SCH (01:20)
[2022-11-06] MEDS: MIDAZOLAM DRIP 50 mg/50mL 50 ML IV SCH ×5 (02:15→18:26)
[2022-11-06 04:30] LABS: Hemoglobin 8.3 g/dL (13.5-17.5); Mean Corpuscular Volume 91.6 fL (80.0-100.0)
[2022-11-06 04:33] LABS: Hematocrit 26.1 % (41.0-53.0); Mean Corpuscular Hgb Conc. 31.7 g/dL (32.0-36.0); Red Blood Cells 2.85 10^6/uL (4.5-5.90); Red Cell Distribution Width 14.6 % (11.8-14.3); White Blood Cell 23.8 10^3/uL (4.4-10.8)
[2022-11-06 04:53] LABS: Alkaline Phosphatase 95 U/L (46-116); Anion Gap 7.2 (5-15); BUN/Creatinine Ratio 15.6 (10.0-20.0); Blood Urea Nitrogen 37 mg/dL (9-23); Calcium 7.8 mg/dL (8.7-10.4); Carbon Dioxide 18.8 mmol/L (20-30); Chloride 99 mmol/L (98-107); Glucose 160 mg/dL (74-106); Magnesium 1.7 mg/dL (1.6-2.6); Potassium 4.6 mmol/L (3.5-5.1); Sodium 125 mmol/L (136-145)
[2022-11-06 04:54] LABS: Albumin 3.1 g/dL (3.2-4.8); Aspartate Aminotransferase 867 U/L (13-40); Bilirubin, Total 0.9 mg/dL (0.2-1.0); Total Protein 5.7 g/dL (5.7-8.2)
[2022-11-06 05:13] LABS: Band Neutrophils % (manual) 0; Basophils % (manual) 0 (0.0-2.0); Blast Cells 0; Metamyelocytes % 0; Myelocytes % 0; Promyelocytes % 0; Reactive Lymphocytes 0
[2022-11-06 05:27] LABS: Alanine Aminotransferase 1520 U/L (7-40)
[2022-11-06] MEDS: SODIUM CHLORIDE 0.9% 1,000 ML IV SCH ×3 (06:30→19:34)
[2022-11-06 07:40] LABS: Base Excess -8.2 mmol/L (-2.0-2.0)
[2022-11-06] MEDS: NOREPINEPHRINE 8 MG/250ML KIT 250 ML IV SCH ×2 (07:54→21:30)
[2022-11-06] MEDS: AMIODARONE 450mg/250ml AE 250 ML IV SCH (07:55)
[2022-11-06] MEDS: fentaNYL Drip 2500mCg/250mlNS 250 ML IV SCH ×2 (07:59→21:42)
[2022-11-06] MEDS: DOXYCYCLINE 100MG/250ML 250 ML IV SCH ×2 (08:17→19:34)
[2022-11-06 09:40] LABS: Eosinophils % (manual) 2 (0-7); Lymphocytes % (manual) 7 (10.0-50.0); Monocytes % (manual) 4 (0-12)
[2022-11-06 09:46] LABS: Platelet Estimate Increased
[2022-11-06] MEDS: ENOXAPARIN SOD 80 MG/0.8ML SYRINGE SC SCH (10:23)
[2022-11-06] MEDS: CEFEPIME 1GM/ 50ML 50 ML IV SCH ×2 (10:23→21:30)
[2022-11-06] MEDS: PANTOPRAZOLE 40 MG/10 ML VIAL INJ IV SCH (10:23)
[2022-11-06] MEDS: ACETAMINOPHEN 325 MG TAB PO PRN ×2 (10:30→21:39)
[2022-11-06] MEDS: SODIUM FERR GLUC 62.5MG/5ML 125 MG in SODIUM CHL 0.9% 100 ML IV SCH (12:00)
[2022-11-06] MEDS: ATORVASTATIN 20 MG TAB PO SCH (21:30)
[2022-11-07] VITALS (109 sets, daily range): BP systolic 77–135; BP diastolic 42–125; PULSE 60–212; RESP 12–113; TEMP 98.1–100.6; O2SAT 60–100
[2022-11-07] MEDS: MIDAZOLAM DRIP 50 mg/50mL 50 ML IV SCH ×4 (03:38→21:19)
[2022-11-07 03:56] LABS: Hematocrit 24.9 % (41.0-53.0); Hemoglobin 8.1 g/dL (13.5-17.5)
[2022-11-07 03:59] LABS: Mean Corpuscular Hemoglobin 30.5 pg (28.0-32.0); Mean Corpuscular Hgb Conc. 32.4 g/dL (32.0-36.0); Red Blood Cells 2.65 10^6/uL (4.5-5.90); White Blood Cell 19.9 10^3/uL (4.4-10.8)
[2022-11-07 04:15] LABS: Alanine Aminotransferase 921 U/L (7-40); Albumin 2.8 g/dL (3.2-4.8); Alkaline Phosphatase 95 U/L (46-116); Anion Gap 8.5 (5-15); Aspartate Aminotransferase 337 U/L (13-40); BUN/Creatinine Ratio 19.8 (10.0-20.0); Basophils % (manual) 0 (0.0-2.0); Blast Cells 0; Blood Urea Nitrogen 39 mg/dL (9-23); Calcium 7.8 mg/dL (8.5-10.1); Carbon Dioxide 18.5 mmol/L (20-30); Chloride 100 mmol/L (98-107); Glucose 132 mg/dL (74-106); Magnesium 1.5 mg/dL (1.6-2.6); Metamyelocytes % 0; Potassium 4.6 mmol/L (3.5-5.1); Promyelocytes % 0; Reactive Lymphocytes 0; Sodium 127 mmol/L (136-145)
[2022-11-07 04:16] LABS: Total Protein 5.4 g/dL (5.7-8.2)
[2022-11-07 04:17] LABS: Bilirubin, Total 0.7 mg/dL (0.2-1.0)
[2022-11-07] MEDS: ACCU-CHEK COMFORT CURVE STRIP VI SCH ×4 (05:48→23:29)
[2022-11-07] MEDS: InsuLIN REG 1unit/0.01ml Soln (100units/ml) SC SCH ×5 (05:50→23:34)
[2022-11-07 06:57] LABS: Anisocytosis Slight; Band Neutrophils % (manual) 6; Eosinophils % (manual) 1 (0-7); Lymphocytes % (manual) 5 (10.0-50.0); Monocytes % (manual) 7 (0-12); Myelocytes % 2; Platelet Estimate Increased
[2022-11-07 07:19] LABS: Base Excess -7.1 mmol/L (-2.0-2.0)
[2022-11-07] MEDS: PANTOPRAZOLE 40 MG/10 ML VIAL INJ IV SCH (09:39)
[2022-11-07] MEDS: DOXYCYCLINE 100MG/250ML 250 ML IV SCH ×2 (09:40→19:46)
[2022-11-07] MEDS: ENOXAPARIN SOD 80 MG/0.8ML SYRINGE SC SCH (09:40)
[2022-11-07] MEDS: NOREPINEPHRINE 8 MG/250ML KIT 250 ML IV SCH ×3 (09:46→22:33)
[2022-11-07] MEDS: EPINEPHrine HCL 250 ML IV SCH (10:04)
[2022-11-07] MEDS ORDERED: EPINEPHrine HCL 250 ML IV ONE (10:14)
[2022-11-07] MEDS: PROPOFOL 100 ML IV SCH (10:30)
[2022-11-07] MEDS: MAGNESIUM SULFATE 1GM/100ML 100 ML IV SCH ×2 (11:17→12:30)
[2022-11-07 11:44] LABS: Alanine Aminotransferase 851 U/L (7-40); Albumin 2.6 g/dL (3.2-4.8); Alkaline Phosphatase 107 U/L (46-116); Anion Gap 12.3 (5-15); Aspartate Aminotransferase 335 U/L (13-40); BUN/Creatinine Ratio 20.5 (10.0-20.0); Blood Urea Nitrogen 43 mg/dL (9-23); Calcium 7.6 mg/dL (8.5-10.1); Carbon Dioxide 17.7 mmol/L (20-30); Chloride 100 mmol/L (98-107); Magnesium 2.4 mg/dL (1.6-2.6); Potassium 4.9 mmol/L (3.5-5.1); Sodium 130 mmol/L (136-145)
[2022-11-07 11:45] LABS: Bilirubin, Total 0.8 mg/dL (0.2-1.0); Lactic Acid w/Reflex 5.4 mmol/L (0.4-2.0); Total Protein 4.9 g/dL (5.7-8.2)
[2022-11-07] MEDS: PHENYLEPHRINE IV 250 ML IV SCH ×2 (12:00→19:46)
[2022-11-07 12:08] LABS: Glucose 240 mg/dL (74-106)
[2022-11-07] MEDS: SODIUM CHLORIDE 0.9% 1,000 ML IV SCH ×2 (12:30→22:30)
[2022-11-07] MEDS: SODIUM FERR GLUC 62.5MG/5ML 125 MG in SODIUM CHL 0.9% 100 ML IV SCH (12:38)
[2022-11-07] MEDS: fentaNYL Drip 2500mCg/250mlNS 250 ML IV SCH ×2 (12:44→23:35)
[2022-11-07] MEDS: CEFEPIME 1GM/ 50ML 50 ML IV SCH ×2 (12:44→21:11)
[2022-11-07 12:57] LABS: Basophils # (auto) 0.1 10 ^3/uL (0-0.2); Eosinophils # (auto) 0.3 10 ^3/uL (0-0.8); Hematocrit 24.3 % (41.0-53.0); Mean Corpuscular Hemoglobin 29.8 pg (28.0-32.0); White Blood Cell 15.1 10^3/uL (4.4-10.8)
[2022-11-07 13:01] LABS: Basophils % (auto) 0.6 % (0.0-2.0); Eosinophils % (auto) 1.8 % (0.0-7.0); Lymphocytes # (auto) 1.7 10 ^3/uL (0.4-5.4); Lymphocytes % (auto) 11.1 % (10.0-50.0); Mean Corpuscular Hgb Conc. 24.8 g/dL (32.0-36.0); Mean Corpuscular Volume 120.3 fL (80.0-100.0); Monocytes # (auto) 0.6 10 ^3/uL (0-1.3); Monocytes % (auto) 3.7 % (0.0-12.0); Neutrophils # (auto) 12.5 10 ^3/uL (1.6-8.6); Neutrophils % (auto) 82.8 % (37.0-80.0); Nucleated Red Blood Cells % 2.4 %; Red Blood Cells 2.02 10^6/uL (4.5-5.90); Red Cell Distribution Width 16.7 % (11.8-14.3)
[2022-11-07 13:57] LABS: Hemoglobin 8.4 g/dL (13.5-17.5)
[2022-11-07 13:59] LABS: Hematocrit 28.4 % (41.0-53.0)
[2022-11-07 14:29] LABS: Base Excess -13.3 mmol/L (-2.0-2.0)
[2022-11-07] MEDS: AMIODARONE 450mg/250ml AE 250 ML IV SCH ×2 (14:41→21:41)
[2022-11-07] MEDS ORDERED: SODIUM BICARBONATE 8.4 % INJ 50ML VIAL IV ONE (18:45)
[2022-11-07 19:18] LABS: Base Excess -12.6 mmol/L (-2.0-2.0)
[2022-11-07 20:38] LABS: Base Excess -7.7 mmol/L (-2.0-2.0)
[2022-11-07] MEDS: ATORVASTATIN 20 MG TAB PO SCH (21:11)
[2022-11-07 22:43] LABS: Base Excess -8.1 mmol/L (-2.0-2.0)
[2022-11-08] VITALS (60 sets, daily range): BP systolic 24–138; BP diastolic 27–61; PULSE 62–67; RESP 15–27; TEMP 99–100; O2SAT 88–100
[2022-11-08] MEDS: MIDAZOLAM DRIP 50 mg/50mL 50 ML IV SCH ×3 (01:47→09:26)
[2022-11-08] MEDS: NOREPINEPHRINE 8 MG/250ML KIT 250 ML IV SCH ×2 (02:38→08:42)
[2022-11-08 04:23] LABS: Hemoglobin 7.4 g/dL (13.5-17.5); Mean Corpuscular Volume 97.6 fL (80.0-100.0); White Blood Cell 20.7 10^3/uL (4.4-10.8)
[2022-11-08 04:26] LABS: Hematocrit 23.1 % (41.0-53.0); Mean Corpuscular Hemoglobin 31.4 pg (28.0-32.0); Mean Corpuscular Hgb Conc. 32.2 g/dL (32.0-36.0); Red Blood Cells 2.37 10^6/uL (4.5-5.90); Red Cell Distribution Width 15.6 % (11.8-14.3)
[2022-11-08 04:36] LABS: Albumin 2.5 g/dL (3.2-4.8); Alkaline Phosphatase 116 U/L (46-116); Anion Gap 8.2 (5-15); BUN/Creatinine Ratio 16.7 (10.0-20.0); Blood Urea Nitrogen 43 mg/dL (9-23); Carbon Dioxide 18.8 mmol/L (20-30); Chloride 93 mmol/L (98-107); Magnesium 2.1 mg/dL (1.6-2.6); Potassium 4.7 mmol/L (3.5-5.1)
[2022-11-08 04:37] LABS: Bilirubin, Total 0.9 mg/dL (0.2-1.0); Total Protein 4.9 g/dL (5.7-8.2)
[2022-11-08] MEDS: PHENYLEPHRINE IV 250 ML IV SCH ×2 (04:40→12:57)
[2022-11-08 04:48] LABS: Aspartate Aminotransferase 1159 U/L (13-40)
[2022-11-08] MEDS: AMIODARONE 450mg/250ml AE 250 ML IV SCH ×2 (05:00→12:55)
[2022-11-08 05:10] LABS: Basophils % (manual) 0 (0.0-2.0); Blast Cells 0; Metamyelocytes % 0; Myelocytes % 0; Promyelocytes % 0; Reactive Lymphocytes 0
[2022-11-08 05:39] LABS: Alanine Aminotransferase 1179 U/L (7-40); Sodium 120 mmol/L (136-145)
[2022-11-08 05:41] LABS: Glucose 426 mg/dL (74-106)
[2022-11-08] MEDS: ACCU-CHEK COMFORT CURVE STRIP VI SCH ×2 (05:48→12:00)
[2022-11-08] MEDS: InsuLIN REG 1unit/0.01ml Soln (100units/ml) SC SCH ×2 (05:54→12:00)
[2022-11-08] MEDS: EPINEPHrine HCL 250 ML IV SCH (06:04)
[2022-11-08] MEDS: fentaNYL Drip 2500mCg/250mlNS 250 ML IV SCH (07:30)
[2022-11-08 07:41] LABS: Base Excess -9.6 mmol/L (-2.0-2.0)
[2022-11-08 08:46] LABS: Band Neutrophils % (manual) 2; Eosinophils % (manual) 1 (0-7); Lymphocytes % (manual) 9 (10.0-50.0); Monocytes % (manual) 6 (0-12)
[2022-11-08 08:47] LABS: Anisocytosis Slight; Platelet Estimate Adequate
[2022-11-08] MEDS: DOXYCYCLINE 100MG/250ML 250 ML IV SCH (08:53)
[2022-11-08] MEDS: SODIUM CHLORIDE 0.9% 1,000 ML IV SCH (09:03)
[2022-11-08] MEDS: PANTOPRAZOLE 40 MG/10 ML VIAL INJ IV SCH (09:25)
[2022-11-08] MEDS ORDERED: MAGNESIUM SULFATE 1GM/100ML 100 ML IV ONE (09:45)
[2022-11-08] MEDS ORDERED: SODIUM BICARBONATE 50ML VIAL 50 ML in SOD CHL 0.45% 1,000 ML IV SCH (09:45)
[2022-11-08] MEDS: PROPOFOL 100 ML IV SCH (10:30)
[2022-11-08] MEDS: SODIUM FERR GLUC 62.5MG/5ML 125 MG in SODIUM CHL 0.9% 100 ML IV SCH (12:00)
[2022-11-08] MEDS: CEFEPIME 1GM/ 50ML 50 ML IV SCH (12:16)
[2022-11-08] MEDS: ENOXAPARIN SOD 80 MG/0.8ML SYRINGE SC SCH (12:16)
[2022-11-08] MEDS ORDERED: LORazepam 2MG/ML-1ML VIAL ONE (13:28)
[2022-11-08] MEDS ORDERED: MORPHINE SULFATE INJ 2 MG/ml SYRG ONE (13:28)
[2022-11-08] MEDS ORDERED: MORPHINE SULFATE INJ 2 MG/ml SYRG IV PRN (13:30)
[2022-11-08] MEDS ORDERED: LORazepam 2MG/ML-1ML VIAL IV PRN (13:30)
[2022-11-08] MEDS ORDERED: MAGNESIUM SULF 50% 40 MEQ/10 ML VL IV ONE (18:18)
[2022-11-08] MEDS ORDERED: AMIODARONE HCL (50 MG/ ML) 3 ML VIAL IV ONE (18:18)
[2022-11-08] MEDS ORDERED: EPINEPHrine HCL 1 MG/10 ML SYRG IV ONE (18:18)
[2022-11-08] MEDS ORDERED: SODIUM BICARBONATE 8.4% INJ 50ML SYRINGE IV ONE (18:18)
[2022-11-08] MEDS ORDERED: CEFEPIME 1GM/ 50ML 50 ML IV SCH (22:00)
== END 2022-11-08 15:41 | DRG 870 ==
LOC: EDBD 18:48 → ER 18:48 → TELE 23:21 → ICU WEST 11-03 23:48
PROVIDERS: ADMIT Nurse Practitioner; ATTEND Internal Medicine Geriatric Medicine
PROC: 5A1955Z Respiratory Ventilation, Greater than 96 Consecutive Hours (ICD-10-PCS; principal; 2022-11-03)
PROC: 0BH17EZ Insertion of Endotracheal Airway into Trachea, Via Natural or Artificial Opening (ICD-10-PCS; 2022-11-03)
PROC: 5A09357 Assistance with Respiratory Ventilation, Less than 24 Consecutive Hours, Continuous Positive Airway Pressure (ICD-10-PCS; 2022-11-03)
PROC: 5A12012 Performance of Cardiac Output, Single, Manual (ICD-10-PCS; 2022-11-07)
PROC: 5A2204Z Restoration of Cardiac Rhythm, Single (ICD-10-PCS; 2022-11-07)
PROC: 04HY32Z Insertion of Monitoring Device into Lower Artery, Percutaneous Approach (ICD-10-PCS; 2022-11-07)
DX: A41.9 Sepsis, unspecified organism (principal); J18.9 Pneumonia, unspecified organism; J96.01 Acute respiratory failure with hypoxia; N17.0 Acute kidney failure with tubular necrosis; K72.00 Acute and subacute hepatic failure without coma; R65.21 Severe sepsis with septic shock; I21.4 Non-ST elevation (NSTEMI) myocardial infarction; I26.99 Other pulmonary embolism without acute cor pulmonale; E44.1 Mild protein-calorie malnutrition; E87.1 Hypo-osmolality and hyponatremia; E87.29 Other acidosis; I50.20 Unspecified systolic (congestive) heart failure; I42.9 Cardiomyopathy, unspecified; I47.20 Ventricular tachycardia, unspecified; T81.718A Complication of other artery following a procedure, not elsewhere classified, initial encounter; Z20.822 Contact with and (suspected) exposure to COVID-19; I46.9 Cardiac arrest, cause unspecified; Z66 Do not resuscitate; D64.9 Anemia, unspecified; E11.9 Type 2 diabetes mellitus without complications; E78.5 Hyperlipidemia, unspecified; G47.00 Insomnia, unspecified; I11.0 Hypertensive heart disease with heart failure; I48.91 Unspecified atrial fibrillation; K59.00 Constipation, unspecified; R62.7 Adult failure to thrive; E83.42 Hypomagnesemia; Z68.30 Body mass index [BMI] 30.0-30.9, adult; Z79.01 Long term (current) use of anticoagulants; Z86.711 Personal history of pulmonary embolism; Z79.82 Long term (current) use of aspirin; Z79.84 Long term (current) use of oral hypoglycemic drugs; Z79.899 Other long term (current) drug therapy
CPT/HCPCS: 36415; 36600; 71045; 71275; 80048; 80053; 80162; 80202; 81001; 82565; 82805; 82962; 83605; 83735; 83880; 84100; 84484; 85007; 85014; 85018; 85025; 85027; 85610; 85730; 86850; 86900; 86901; 87040; 87070; 87077; 87081; 87186; 87205; 87426; 92950; 93005; 93306; 93971; 94002; 94003; 94640; 94660; 99291; C9113; G0378; J0171; J0330; J1815; J2250; J2704; J3490